=== PATIENT | male | born 1935 | race Caucasian/White ===

== ENCOUNTER 2016-09-02 22:28 | Inpatient (IN) | payer MEDICARE, OTHER ==
[~2016-09-02 22:28] MED LIST: ASPI81 PO; ENAL5TAB98 PO; FISH500C PO; KLOR20TA6 PO; LASI20TA PO; PROT40TA PO; ROSU20 PO; TAB-TAB PO; XARE20TA OR
[2016-09-02 22:35] VITALS: BP 100/67; PULSE 156; RESP 18; TEMP 98; O2SAT 96
[2016-09-02] MEDS ORDERED: ETOMIDATE 20 MG/10 ML VIAL IV PUSH ONE (22:45)
[2016-09-02] MEDS ORDERED: MORPHINE SULFATE 4 MG/ML INJ IV PUSH ONE (22:45)
[2016-09-02] MEDS ORDERED: LIDOCAINE HCL 2% 100 MG/5 ML SYRINGE IV PUSH ONE (22:45)
[2016-09-02] MEDS ORDERED: SODIUM CHLORIDE 0.9% FLUSH 10 ML FLUSH IVF PRN (22:45)
[2016-09-02 22:55] VITALS: BP 114/65; PULSE 66; RESP 18; O2SAT 96
[2016-09-02 22:57] VITALS: BP_SYST 110; BP_SYST 114; BP_DIAS 65; BP_DIAS 66; PULSE 68; RESP 14; O2SAT 95
[2016-09-02 23:02] VITALS: PULSE 68; RESP 16; O2SAT 96
[2016-09-02 23:05] VITALS: BP 119/68; PULSE 64; RESP 16; O2SAT 96
--- NOTE | 2016-09-02 23:07 | RADRPT ---
EXAM DATE/TIME: 09/02/2016 22:44 [place] COMPARISON: No previous studies available for comparison. INDICATIONS : Chest pain. MEDICAL HISTORY : Cardiovascular disease. SURGICAL HISTORY : Pacemaker. ENCOUNTER: Initial ACUITY: 1 day PAIN SCORE: Non-responsive. LOCATION: Bilateral chest FINDINGS: Pacemaker device is noted with control pack over the left chest. There is minimal patchy interstitial prominence of undetermined chronicity. Mild opacity at the lateral left lung base. Sternotomy wires and surgical clips and markers are present. Heart size is grossly within normal limits. CONCLUSION: Patchy mild parenchymal opacity. Luke Quiroga MD on September 02, 2016 at 23:04 Board Certified Radiologist. This report was verified electronically.
[2016-09-02 23:19] VITALS: BP 128/70; PULSE 68; RESP 16; O2SAT 96
[2016-09-02 23:40] LABS: AUTOMATED NEUTROPHIL # 3.3 TH/MM3 (1.8-7.7); BASOPHIL % 0.3 % (0.0-2.0); EOSINOPHIL # 0.2 TH/MM3 (0-0.4); EOSINOPHIL % 3.6 % (0.0-4.0); HEMATOCRIT 42.5 % (39.0-51.0); HEMO FLAGS DIFF FINAL; LYMPHOCYTE # 0.8 TH/MM3 (1.0-4.8); MEAN CELL VOLUME 93.1 FL (80.0-100.0); MEAN CORPUSCULAR HEMOGLOBIN 31.5 PG (27.0-34.0); MEAN CORPUSCULAR HGB CONC 33.9 % (32.0-36.0); MONO % 13.8 % (0.0-8.0); NEUT % 66.3 % (16.0-70.0); PLATELET COUNT 189 TH/MM3 (150-450); RED BLOOD COUNT 4.57 MIL/MM3 (4.50-5.90); RED CELL DISTRIBUTION WIDTH 13.9 % (11.6-17.2); WHITE BLOOD COUNT 4.9 TH/MM3 (4.0-11.0)
[2016-09-02] MEDS ORDERED: CARV25TA PO (23:45)
[2016-09-02] MEDS ORDERED: FOLI400T PO (23:45)
[2016-09-02] MEDS ORDERED: LOSA50TA PO (23:45)
[2016-09-02 23:55] LABS: APTT (PATIENT) 29.3 SEC (24.3-30.1); PROTHROMBIN TIME - PATIENT 11.3 SEC (9.8-11.6)
[2016-09-03] VITALS (21 sets, daily range): BP systolic 112–131; BP diastolic 54–75; PULSE 52–111; RESP 12–18; TEMP 97.4–98.4; O2SAT 92–96
--- NOTE | 2016-09-03 00:09 | PD ---
HPI . Chest pain Chief Complaint: Cardiac Complaint Time Seen by Provider: 22:32 Travel History International Travel<30 days: No Contact w/Intl Traveler<30days: No Traveled to known affect area: No History of Present Illness HPI Patient presents to us by EMS with the chief complaint of chest pain. EMS found that the patient was in V. tach. They treated him in route with amiodarone. The patient is on amiodarone. He also has an AICD/pacemaker. Patient reports the onset of chest pain approximately 45 minutes prior to their arrival of EMS. The discomfort has been continuous. He describes it as a squeezing sensation. No associated dizziness, diaphoresis or shortness of breath. Does report a previous similar history associated with IN. PFSH Past Medical History Hx Anticoagulant Therapy: Yes Heart Rhythm Problems: Yes Cancer: Yes (bladder tumors some where malignant) Cardiac Catheterization: Yes Cardiovascular Problems: Yes High Cholesterol: Yes Coronary Artery Disease: Yes Diabetes: No Diminished Hearing: No Endocrine: No Gastrointestinal Disorders: Yes (GERD) Glaucoma: No Genitourinary: No Hepatitis: No Hiatal Hernia: No Hypertension: Yes Immune Disorder: No Medical other: Yes (arthritis,bladder tumors hx of uti ) Musculoskeletal: No Neurologic: No Psychiatric: No Reproductive: No Respiratory: Yes (hx of pneumonia) Myocardial Infarction: Yes Thyroid Disease: No Past Surgical History Abdominal Surgery: Yes (gallbladder removed) AICD: Yes Body Medical Devices: BLADDER STIMULATOR Cardiac Surgery: Yes (quad by-pass then triple by-pass cardiac stents,AICD) Coronary Artery Bypass Graft: Yes (1980 AND 2002) Ear Surgery: No Endocrine Surgery: No Eye Surgery: No Genitourinary Surgery: Yes (bladder tumors removed prostate surgery) Oral Surgery: No Pacemaker: Yes Thoracic Surgery: No Other Surgery: Yes (CORONARY ARTERY BYPASS GRAFT IN 1980 AND 2002) Social History Alcohol Use: No Tobacco Use: Yes (quit; 1980) Substance Use: No Allergies-Medications (Allergen,Severity, Reaction): Coded Allergies: Cefizox (Verified Allergy, Severe, ANAPHYLAXIS, 09/02/16) Ceftin (Unverified Allergy, Severe, anaphylactic, 09/02/16) Levaquin (Verified Allergy, Severe, Anaphylaxis, 09/02/16) Penicillin (Verified Allergy, Mild, 09/02/16) causes anaphylactic Reported Meds & Prescriptions Reported Meds & Active Scripts Active Reported Folic Acid 400 Mcg Tab 400 Mcg PO DAILY Losartan (Losartan Potassium) 50 Mg Tab 50 Mg PO DAILY Carvedilol 25 Mg Tab 25 Mg PO BID K-Dur (Potassium Chloride) 20 Meq Tabcr 20 Meq PO DIRECTED Lasix (Furosemide) 20 Mg Tab 20 Mg PO DIRECTED Xarelto (Rivaroxaban) 20 Mg Tab 20 Mg OR Protonix (Pantoprazole Sodium) 40 Mg Tabdr 40 Mg PO DAILY Fish Oil 500 Mg Cap 1,000 Mg PO DAILY Crestor (Rosuvastatin Calcium) 20 Mg Tab 20 Mg PO DAILY Review of Systems Except as stated in HPI: all other systems reviewed are Neg Cardiovascular: Positive: Chest Pain or Discomfort, No: Palpitations Respiratory: No: Shortness of Breath Gastrointestinal: No: Nausea, Vomiting Physical Exam Narrative GENERAL: Patient is awake and alert and is in no acute distress. SKIN: Warm and dry. He is not pale or diaphoretic. HEAD: Atraumatic. Normocephalic. EYES: Pupils equal and round. Extraocular movements are intact. ENT: No nasal bleeding or discharge. Mucous membranes pink and moist. NECK: Trachea midline. Neck is supple. CARDIOVASCULAR: V. tach. RESPIRATORY: No accessory muscle use. Lungs are clear. GASTROINTESTINAL: Abdomen soft, non-tender, nondistended. MUSCULOSKELETAL: No obvious deformities. No edema. NEUROLOGICAL: Awake and alert. No obvious cranial nerve deficits. Motor grossly within normal limits. Normal speech. PSYCHIATRIC: Appropriate mood and affect; insight and judgment normal. Data Data Last Documented VS Vital Signs Date Time Temp Pulse Resp B/P Pulse Ox O2 Delivery O2 Flow Rate FiO2 09/03/16 00:36 65 18 116/67 95 Nasal Cannula 3 09/02/16 22:35 98.0 Orders Electrocardiogram (09/02/16 22:32) Basic Metabolic Panel (Bmp) (09/02/16 22:32) Ckmb (Isoenzyme) Profile (09/02/16 22:32) Complete Blood Count With Diff (09/02/16 22:32) Magnesium (Mg) (09/02/16 22:32) Prothrombin Time / Inr (Pt) (09/02/16 22:32) Act Partial Throm Time (Ptt) (09/02/16 22:32) Troponin I (09/02/16 22:32) Chest, Single Ap (09/02/16 22:32) Ecg Monitoring (09/02/16 22:32) Bilateral Bp Monitoring (09/02/16 22:32) Iv Access Insert/Monitor (09/02/16 22:32) Oximetry (09/02/16 22:32) Oxygen Administration (09/02/16 22:32) Morphine Inj (Morphine Inj) (09/02/16 22:45) Sodium Chloride 0.9% Flush (Ns Flush) (09/02/16 22:45) Lidocaine 2% Inj (Xylocaine 2% Inj) (09/02/16 22:45) Etomidate Inj (Amidate Inj) (09/02/16 22:45) CKMB (09/02/16 23:15) CKMB% (09/02/16 23:15) Admit Order (Ed Use Only) (09/03/16 01:06) Consult Cardiology (09/03/16 ) Labs Laboratory Tests Test 09/02/16 23:15 Prothrombin Time 11.3 SEC Prothromb Time International 1.0 RATIO Ratio Activated Partial 29.3 SEC Thromboplast Time White Blood Count 4.9 TH/MM3 Red Blood Count 4.57 MIL/MM3 Hemoglobin 14.4 GM/DL Hematocrit 42.5 % Mean Corpuscular Volume 93.1 FL Mean Corpuscular Hemoglobin 31.5 PG Mean Corpuscular Hemoglobin 33.9 % Concent Red Cell Distribution Width 13.9 % Platelet Count 189 TH/MM3 Mean Platelet Volume 8.8 FL Neutrophils (%) (Auto) 66.3 % Lymphocytes (%) (Auto) 16.0 % Monocytes (%) (Auto) 13.8 % Eosinophils (%) (Auto) 3.6 % Basophils (%) (Auto) 0.3 % Neutrophils # (Auto) 3.3 TH/MM3 Lymphocytes # (Auto) 0.8 TH/MM3 Monocytes # (Auto) 0.7 TH/MM3 Eosinophils # (Auto) 0.2 TH/MM3 Basophils # (Auto) 0.0 TH/MM3 CBC Comment DIFF FINAL Differential Comment Sodium Level 143 MEQ/L Potassium Level 4.0 MEQ/L Chloride Level 108 MEQ/L Carbon Dioxide Level 27.6 MEQ/L Anion Gap 7 MEQ/L Blood Urea Nitrogen 23 MG/DL Creatinine 0.89 MG/DL Estimat Glomerular Filtration 82 ML/MIN Rate Random Glucose 118 MG/DL Calcium Level 8.5 MG/DL Magnesium Level 2.0 MG/DL Total Creatine Kinase 125 U/L Creatine Kinase MB 2.7 NG/ML Troponin I 0.02 NG/ML MDM Medical Decision Making Medical Screen Exam Complete: Yes Emergency Medical Condition: Yes Interpretation(s) Initial EKG shows V. tach subsequent EKG shows a sinus rhythm with a left anterior fascicular block. This is unchanged from previous. Differential Diagnosis Differential diagnosis of chest pain includes but is not limited to musculoskeletal pain, pulmonary embolism, acute coronary syndrome, pneumonia, pleurisy Narrative Course Patient presented to us with a chief complaint of chest pain. Patient was found to be in V. tach by EMS. The V. tach did not respond amiodarone. The patient was given morphine, 4 mg IV, lidocaine, 100 mg IV and then etomidate. He was successfully cardioverted to a sinus rhythm. CBC & BMP Diagram 09/02/16 23:15 Initial cardiac enzymes are negative. Last Impressions Chest X-Ray 09/02/162 Signed Impressions: Service Date/Time: Friday, September 02, 2016 22:44 - CONCLUSION: Patchy mild parenchymal opacity. Luke Quiroga MD Critical Care Narrative Aggregate critical care time was 45 minutes. Time to perform other separately billable procedures was not included in the critical care time. My time did not include minutes spent treating any other patients simultaneously or on activities that did not directly contribute to the patient's treatment. The services I provided to this patient were to treat and/or prevent clinically significant deterioration due to VT I provided critical care services requiring my management, as noted below: Chart data review, documentation time, medication orders and management, vital sign assessments/reviewing monitor data, ordering and reviewing lab tests, ordering and interpreting/reviewing x-rays and diagnostic studies, care of the patient and discussion of the patient with the admitting physicians Procedures Procedure Narrative After the risks and benefits were discussed the following procedure was performed: MODERATE SEDATION: The patient was placed on a bench precision assembler and pulse oximetry. An ambu bag and suction was immediately available at bedside. The patient was monitored by the nurse. Oxygen saturation , heart rate and blood pressure were monitored. Procedural sedation was acheived using etomidate. The patient was observed until awake and alert. Procedural Sedation time in attendance was 15 minutes. Physician Communication Physician Communication Dr. Villanueva leather stripping machine operator, recommends admission to [facility]. Dr. Mann will be the admitting doctor. Diagnosis Primary Impression: VT (ventricular tachycardia) Admitting Information Admitting Physician Requests: Admit Condition: Stable Kerry Guaman MD Sep 03, 2016 00:09
[2016-09-03 00:31] LABS: CREATINE KINASE 125 U/L (39-308)
[2016-09-03 00:32] LABS: ANION GAP 7 MEQ/L (5-15); BICARBONATE 27.6 MEQ/L (21.0-32.0); BLOOD UREA NITROGEN 23 MG/DL (7-18); CHLORIDE 108 MEQ/L (98-107); GLOMERULAR FILTRATION RATE 82 ML/MIN (>89); SODIUM (NA) 143 MEQ/L (136-145)
[2016-09-03 00:43] LABS: CKMB 2.7 NG/ML (0.5-3.6)
[2016-09-03] MEDS: SODIUM CHLOR 0.9% 1000 ML INJ 1,000 ML IV SCH ×3 (01:18→15:34)
[2016-09-03] MEDS ORDERED: ACETAMINOPHEN 325 MG TAB PO PRN (01:30)
[2016-09-03] MEDS ORDERED: BISACODYL 10 MG SUPP RECTAL PRN (01:30)
[2016-09-03] MEDS ORDERED: ONDANSETRON HCL 4 MG/2 ML VIAL IVP PRN (01:30)
[2016-09-03] MEDS ORDERED: MORPHINE SULFATE 4 MG/ML INJ IV PRN (01:30)
[2016-09-03] MEDS ORDERED: SODIUM CHLORIDE 0.9% FLUSH 10 ML FLUSH IV FLUSH PRN (01:30)
[2016-09-03] MEDS ORDERED: ACETAMINOPHEN/HYDROcodone 325 MG/5 MG TAB PO PRN (01:30)
[2016-09-03] MEDS: SODIUM CHLORIDE 0.9% FLUSH 10 ML FLUSH IV FLUSH SCH ×2 (02:24→20:06)
--- NOTE | 2016-09-03 03:55 | HHI.HP ---
[facility] Service [facility] Primary Care Physician Socrates Gill MD Admission Diagnosis VT Diagnoses: (1) VT (ventricular tachycardia) Diagnosis: Principal (2) Chest pain Diagnosis: Principal (3) Dehydration Diagnosis: Principal Travel History International Travel<30 Days: No Contact w/Intl Traveler <30 Da: No Traveled to Known Affected Are: No History of Present Illness This is a 81-year-old male with a PMH of Bladder CA, HTN, Hyperlipidemia, CAD, GERD and AICD (Medtronic) who was brought to the ER by EMS secondary to complaints of chest pain, found to be in V-tach by EMS s/p Amiodarone w/ minimal improvement. Upon arrival to ER underwent successful cardioversion, current in sinus rhythm. Pt denies AICD firing. Recent AICD interrogation last week w/ no events noted. Follows w/ Dr. Niño, seen in office approx 1 month ago for routine visit w/ no changes to medications or new concerns. BP 119/68, HR 64, O2 sat 96% on 3L NC, Afebrile. CBC unremarkable. Chemistry with a GFR 82, BUN 23. Troponin 0.02. INR 1.0. CXR with patchy mild parenchymal opacity. Review of Systems Except as stated in HPI: all other systems reviewed are Neg ROS: 14 point review of systems otherwise negative. Past Family Social History Past Medical History PMH: Bladder CA, HTN, Hyperlipidemia, CAD, GERD and AICD (Medtronic) Past Surgical History PAST SURGICAL HISTORY: Cholecystectomy, AICD (Medtronic), Bladder Stimulator, CABG, Prostate surgery Allergies: Coded Allergies: Cefizox (Verified Allergy, Severe, ANAPHYLAXIS, 09/02/16) Ceftin (Unverified Allergy, Severe, anaphylactic, 09/02/16) Levaquin (Verified Allergy, Severe, Anaphylaxis, 09/02/16) Penicillin (Verified Allergy, Mild, 09/02/16) causes anaphylactic Family History PAST FAMILY HISTORY: Reviewed. No h/o DM or CAD Social History PAST SOCIAL HISTORY: Negative for alcohol, tobacco or drugs. Physical Exam Vital Signs Vital Signs Date Time Temp Pulse Resp B/P Pulse Ox O2 Delivery O2 Flow Rate FiO2 09/03/16 03:33 58 16 123/63 96 Nasal Cannula 3 09/03/16 00:36 65 18 116/67 95 Nasal Cannula 3 09/02/16 23:19 68 16 128/70 96 Nasal Cannula 3 09/02/16 23:12 68 18 97 Nasal Cannula 3 09/02/16 23:05 64 16 119/68 96 Nasal Cannula 3 09/02/16 23:02 68 16 96 09/02/16 22:57 68 14 114/65 95 Non-Rebreather 15 110/66 09/02/16 22:55 66 18 114/65 96 09/02/16 22:40 158 18 96 Non-Rebreather 15 09/02/16 22:35 98.0 156 18 100/67 96 09/02/16 22:30 96 Non-Rebreather 15 09/02/16 22:30 156 18 97 Nasal Cannula 3 Physical Exam PE: GENERAL: Elderly white male in no acute distress. at bedside. HEENT: PERRLA, EOMI. No scleral icterus or conjunctival pallor. No lid lag or facial droop. CARDIOVASCULAR: Regular rate and rhythm. No obvious murmurs to auscultation. No chest tenderness to palpation. RESPIRATORY: No obvious rhonchi or wheezing. Clear to auscultation. Breath sounds equal bilaterally. GASTROINTESTINAL: Abdomen soft, non-tender, nondistended. BS normal. MUSCULOSKELETAL: Extremities without clubbing, cyanosis, or edema. No obvious deformities. NEUROLOGICAL: Awake, alert and oriented x4. No focal neurologic deficits. Moving both upper and lower extremities spontaneously. Laboratory Laboratory Tests Test 09/02/16 23:15 Prothrombin Time 11.3 Prothromb Time International 1.0 Ratio Activated Partial 29.3 Thromboplast Time White Blood Count 4.9 Red Blood Count 4.57 Hemoglobin 14.4 Hematocrit 42.5 Mean Corpuscular Volume 93.1 Mean Corpuscular Hemoglobin 31.5 Mean Corpuscular Hemoglobin 33.9 Concent Red Cell Distribution Width 13.9 Platelet Count 189 Mean Platelet Volume 8.8 Neutrophils (%) (Auto) 66.3 Lymphocytes (%) (Auto) 16.0 Monocytes (%) (Auto) 13.8 Eosinophils (%) (Auto) 3.6 Basophils (%) (Auto) 0.3 Neutrophils # (Auto) 3.3 Lymphocytes # (Auto) 0.8 Monocytes # (Auto) 0.7 Eosinophils # (Auto) 0.2 Basophils # (Auto) 0.0 CBC Comment DIFF FINAL Differential Comment Sodium Level 143 Potassium Level 4.0 Chloride Level 108 Carbon Dioxide Level 27.6 Anion Gap 7 Blood Urea Nitrogen 23 Creatinine 0.89 Estimat Glomerular Filtration 82 Rate Random Glucose 118 Calcium Level 8.5 Magnesium Level 2.0 Total Creatine Kinase 125 Creatine Kinase MB 2.7 Troponin I 0.02 Result Diagram: 09/02/16 2315 09/02/162314 Assessment and Plan Problem List: (1) VT (ventricular tachycardia) ICD Code: I47.2 Status: Acute (2) Chest pain ICD Code: R07.9 Status: Acute (3) Dehydration ICD Code: E86.0 Status: Acute Assessment and Plan A/P: 1. V-tach: acute episode of V-tach s/p Amiodarone by EMS w/ minimal improvement, s/p successful cardioversion in ER. Remains in sinus rhythm. Vitals stable, electrolytes normal. Follows w/ Dr. Niño as outpatient, will consult for further recommendations. Admit to [facility], monitor on telemetry. AICD interrogation (Socialite). 2. Chest Pain: secondary to above, initial trop negative, EKG w/ no acute ischemia. Check serial cardiac enzymes. Morphine/NTG prn if needed. Cardio eval. 3. Dehydration: GFR 82, BUN 23. UA negative for UTI. IVF and repeat labs in a.m. 4. DVT Prophylaxis: On Xarelto at home. 5. Social work for d/c planning as needed. 6. Case discussed w/ ER physician at length. Physician Certification 2 Midnight Certification Type: Admission for Inpatient Services Order for Inpatient Services The services are ordered in accordance with Medicare regulations or non- Medicare payer requirements, as applicable. In the case of services not specified as inpatient-only, they are appropriately provided as inpatient services in accordance with the 2-midnight benchmark. Estimated LOS (days): 2 days is the estimated time the patient will need to remain in the hospital, assuming treatment plan goals are met and no additional complications. Post-Hospital Plan: Not yet determined Marianne Mann MD Sep 03, 2016 03:55
[2016-09-03] MEDS ORDERED: CARVEDILOL 12.5 MG TAB PO SCH (09:00)
[2016-09-03 11:04] LABS: BASOPHIL % 0.6 % (0.0-2.0); EOSINOPHIL # 0.2 TH/MM3 (0-0.4); EOSINOPHIL % 2.9 % (0.0-4.0); HEMATOCRIT 40.9 % (39.0-51.0); HEMO FLAGS DIFF FINAL; LYMPH % 14.2 % (9.0-44.0); LYMPHOCYTE # 0.8 TH/MM3 (1.0-4.8); MEAN CORPUSCULAR HEMOGLOBIN 30.8 PG (27.0-34.0); MEAN CORPUSCULAR HGB CONC 32.4 % (32.0-36.0); MONO % 11.3 % (0.0-8.0); PLATELET COUNT 130 TH/MM3 (150-450); RED CELL DISTRIBUTION WIDTH 13.7 % (11.6-17.2); WHITE BLOOD COUNT 5.6 TH/MM3 (4.0-11.0)
[2016-09-03 11:37] LABS: ALKALINE PHOSPHATASE 78 U/L (45-117); ALT (GPT) 29 U/L (12-78); ANION GAP 6 MEQ/L (5-15); AST (GOT) 16 U/L (15-37); BICARBONATE 27.7 MEQ/L (21.0-32.0); BLOOD UREA NITROGEN 23 MG/DL (7-18); CHLORIDE 109 MEQ/L (98-107); GLOMERULAR FILTRATION RATE 87 ML/MIN (>89); POTASSIUM 3.7 MEQ/L (3.5-5.1); SODIUM (NA) 143 MEQ/L (136-145); TOTAL BILIRUBIN ADULT 0.5 MG/DL (0.2-1.0)
--- NOTE | 2016-09-03 12:29 | HHI.PR ---
Addendum to Inpatient Note Addendum Reason: Additional Documentation Additional Information I have seen and examined the patient. The patient denies chest pain or shortness of breath. No further V. tach events on telemetry. Stable vital signs. Patient is awake alert oriented 3, nonacute distress. Lungs are clear to auscultation bilaterally. S1 and S2 present with regular rate and rhythm, no murmurs rubs or gallops. Abdomen is soft and nontender. Neuro exam is unremarkable. Patient with episode of V. tach status post amiodarone and cardioversion. The patient currently in sinus rhythm. I will follow-up cardiology recommendations. AICD interrogation pending. Some statin and facial for hyperlipidemia. Continue Protonix for GERD. Continue to hold Lasix and potassium supplementation. Patient currently with antegrade correlation on rivaroxaban at home. Upon review of charts there is no past history of atrial fibrillation. Patient states that he was placed on antibiotic correlation by Dr. Luke Evans. At this point it is not clear to me why the patient is on anti-coagulation, suspect likely secondary to a depressed ejection fraction. For now until we get the AICD interrogation and the radiology consultation I will place the patient on a heparin drip and hold oral anticoagulation. David Lewis MD Sep 03, 2016 12:28
[2016-09-03] MEDS ORDERED: NON-FORMULARY DRUG (Omega-3 Fatty Acids (Fish Oil) 1,000 MG) PO SCH (14:00)
[2016-09-03] MEDS ORDERED: HEPARIN-D5W INJ 250 ML IV SCH (14:15)
--- NOTE | 2016-09-03 14:17 | EKG ---
Date Performed: 09/02/2016 Time Performed: 22:32:59 PTAGE: 81 years EKG: Probable ventricular tachycardia with heart rate of 157 bpm with marked widening of QRS Com pared to previous tracing, the ventricular tachycardia is new. Previous tracing showed bigeminal PVC s. Clinical correlation and follow-up tracings strongly recommended. Abnormal ECG PREVIOUS TRACING : 02/01/2012 15.24 DOCTOR: Jose A Gregory Interpretating Date/Time 09/03/2016 14:16:40
--- NOTE | 2016-09-03 14:19 | EKG ---
Date Performed: 09/02/2016 Time Performed: 22:50:24 PTAGE: 81 years EKG: Sinus rhythm WITH FIRST DEGREE AV BLOCK WITH OCCASIONAL SUPRAVENTRICULAR PREMATURE COMPLEXES PROBABLE LATERAL DIANA CARDIAL INFARCTION INFERIOR MYOCARDIAL INFARCTION Compared to previous tracing, ventricular tachycard ia is no longer present. ABNORMAL ECG PREVIOUS TRACING : 09/02/2016 22.32.59 DOCTOR: Jose A Gregory Interpretating Date/Time 09/03/2016 14:17:20
--- NOTE | 2016-09-03 14:19 | EKG ---
Date Performed: 09/03/2016 Time Performed: 04:53:56 PTAGE: 81 years EKG: Sinus rhythm with PAC(s) with 1st degree A-V block Inferior infarct - age undetermined Possoble lateral myocardia l infarction of undetermined age Nonspecific ST-T wave changes Since previous tracing, no significant change noted Abnormal ECG PREVIOUS TRACING : 09/02/2016 22.50 DOCTOR: Jose A Gregory Interpretating Date/Time 09/03/2016 14:18:22
[2016-09-03 14:57] LABS: HEMATOCRIT 41.1 % (39.0-51.0); MEAN CELL VOLUME 93.6 FL (80.0-100.0); MEAN CORPUSCULAR HGB CONC 33.1 % (32.0-36.0); PLATELET COUNT 160 TH/MM3 (150-450); RED BLOOD COUNT 4.39 MIL/MM3 (4.50-5.90); RED CELL DISTRIBUTION WIDTH 13.9 % (11.6-17.2); REVIEW FLAG FINAL
[2016-09-03 15:14] LABS: INTERNATIONAL NORMALIZED RATIO 1.1 RATIO; PROTHROMBIN TIME - PATIENT 12.7 SEC (9.8-11.6)
[2016-09-03] MEDS: ATORVASTATIN 40 MG TAB PO SCH (15:34)
[2016-09-03] MEDS: PANTOPRAZOLE SOD 40 MG DELAYED RELEASE TAB PO SCH (15:34)
[2016-09-03] MEDS: ENOXAPARIN SODIUM 100 MG/ML SYRINGE SQ SCH (16:34)
[2016-09-03] MEDS: ASPIRIN EC 81 MG TABEC PO SCH (16:34)
--- NOTE | 2016-09-03 16:40 | MB ---
cc: JEFFERY MATHIAS M.D., DAVID W. M.D. LOPEZ, MARIA I. M.D. DATE OF CONSULTATION: 09/03/2016 REASON FOR CONSULTATION Ventricular tachycardia. HISTORY OF PRESENT ILLNESS 81-year-old white male with extensive coronary artery disease, status post four-vessel CABG in 1981 and two stents after that, who presented with retrosternal chest pain of one-hour duration. The patient called 911 and upon arrival the patient was found to be in sustained ventricular tachycardia. The patient was given sublingual nitroglycerin and was brought to the emergency room where the patient was cardioverted and went into normal sinus rhythm after just one shock. Currently the patient is asymptomatic, denies chest pain, shortness of breath or palpitations. PAST MEDICAL HISTORY 1. Coronary artery disease, is status post four-vessel CABG in 1981. 2. Ischemic cardiomyopathy with ejection fraction of 30% and is status post AICD. 3. Coronary stent in 2002. 4. Cypher stent to SVG to OM in 2008. 5. Bladder cancer. 6. Hypertension. 7. Dyslipidemia. 8. Paroxysmal atrial fibrillation. SOCIAL HISTORY Denies smoking or drinking. PAST SURGICAL HISTORY 1. Cholecystectomy. 2. Bladder stimulator. 3. Prostatectomy. ALLERGIES CEFIZOX, CEFTIN, LEVAQUIN AND PENICILLIN. CURRENT MEDICATIONS 1. Pantoprazole 40 mg daily. 2. Atorvastatin 40 mg daily. 3. Carvedilol 25 mg twice a day. 4. [place] as needed. REVIEW OF SYSTEMS As stated in the History of Present Illness. PHYSICAL EXAMINATION GENERAL: The patient is in no acute distress. VITAL SIGNS: Blood pressure is 112/54 with a mean of 73 mmHg, heart rate 56 beats per minute, he is afebrile, saturation 93%. HEAD AND NECK: Without JVD or carotid bruits. LUNGS: With bibasilar rales. HEART: Normal S1 and S2 without murmurs or gallops. ABDOMEN: Benign without visceromegaly or bruits. EXTREMITIES: Without edema. DATA Chest x-ray showed no cardiomegaly, prior sternotomy, AICD wire and a left base infiltrate. BLOOD WORK PT 12.7, INR 1.1, PTT 35. Sodium 143, potassium 3.7, BUN 23, creatinine 0.85, glucose 133, GFR 87, first troponin 0.02, second troponin 0.25. CBC with a white count of 5, hemoglobin of 13.6, platelet count of 160. EKG showed normal sinus rhythm with first-degree AV block and an old inferior infarct. ASSESSMENT A 81-year-old white male with coronary artery disease admitted with chest pain and ventricular tachycardia, status post external shock in the emergency room. His positive troponins are of undetermined origin since it could represent an acute coronary syndrome or be the result of his cardioversion. In any case, the patient will require a left cardiac catheterization to rule out significant coronary stenosis and will also need interrogation of his AICD since it failed to provide him with a shock. The patient had been on Xarelto for his atrial fibrillation and his last dose was yesterday. We will hold Xarelto and start SQ Lovenox at a therapeutic dose to prepare the patient for both cardiac catheterization and possible battery replacement for his AICD. He is already on beta-blockers and statins. I will also start Aspirin and ELIANA inhibitor if tolerated. We will continue to follow closely. MD PERCY Vanessa/FABIAN /3:57 PM /4:05 PM [id number]
[2016-09-03] MEDS: CARVEDILOL 12.5 MG TAB PO SCH (20:06)
[2016-09-04] VITALS (24 sets, daily range): BP systolic 96–137; BP diastolic 46–73; PULSE 54–66; RESP 12–16; TEMP 97.4–98.7; O2SAT 92–95
[2016-09-04] MEDS: ENOXAPARIN SODIUM 100 MG/ML SYRINGE SQ SCH ×2 (05:56→16:52)
[2016-09-04] MEDS: SODIUM CHLOR 0.9% 1000 ML INJ 1,000 ML IV SCH ×2 (07:05→16:53)
[2016-09-04 08:59] LABS: AUTOMATED NEUTROPHIL # 3.1 TH/MM3 (1.8-7.7); BASOPHIL % 0.5 % (0.0-2.0); EOSINOPHIL # 0.2 TH/MM3 (0-0.4); EOSINOPHIL % 4.3 % (0.0-4.0); HEMATOCRIT 42.7 % (39.0-51.0); HEMO FLAGS DIFF FINAL; LYMPH % 15.6 % (9.0-44.0); LYMPHOCYTE # 0.7 TH/MM3 (1.0-4.8); MEAN CELL VOLUME 93.7 FL (80.0-100.0); MEAN CORPUSCULAR HEMOGLOBIN 30.8 PG (27.0-34.0); MEAN CORPUSCULAR HGB CONC 32.8 % (32.0-36.0); MONO % 11.2 % (0.0-8.0); NEUT % 68.4 % (16.0-70.0); PLATELET COUNT 161 TH/MM3 (150-450); RED BLOOD COUNT 4.56 MIL/MM3 (4.50-5.90); RED CELL DISTRIBUTION WIDTH 13.8 % (11.6-17.2); WHITE BLOOD COUNT 4.6 TH/MM3 (4.0-11.0)
[2016-09-04] MEDS: SODIUM CHLORIDE 0.9% FLUSH 10 ML FLUSH IV FLUSH SCH ×2 (09:17→21:26)
[2016-09-04] MEDS: PANTOPRAZOLE SOD 40 MG DELAYED RELEASE TAB PO SCH (09:17)
[2016-09-04] MEDS: CARVEDILOL 12.5 MG TAB PO SCH ×2 (09:17→21:25)
[2016-09-04] MEDS: ASPIRIN EC 81 MG TABEC PO SCH (09:17)
[2016-09-04] MEDS: LOSARTAN 25 MG TAB PO SCH (09:17)
[2016-09-04] MEDS: ATORVASTATIN 40 MG TAB PO SCH (09:17)
[2016-09-04 09:18] LABS: ANION GAP 6 MEQ/L (5-15); AST (GOT) 17 U/L (15-37); BICARBONATE 25.8 MEQ/L (21.0-32.0); BLOOD UREA NITROGEN 14 MG/DL (7-18); CHLORIDE 109 MEQ/L (98-107); GLOMERULAR FILTRATION RATE 97 ML/MIN (>89); POTASSIUM 3.6 MEQ/L (3.5-5.1); SODIUM (NA) 141 MEQ/L (136-145)
[2016-09-04 09:21] LABS: ALKALINE PHOSPHATASE 76 U/L (45-117); ALT (GPT) 29 U/L (12-78); TOTAL BILIRUBIN ADULT 0.9 MG/DL (0.2-1.0)
[2016-09-04] MEDS ORDERED: POTASSIUM CHLORIDE 20 MEQ CONTROLLED RELEASE TAB PO ONE ×2 (11:30→15:30)
--- NOTE | 2016-09-04 12:51 | HHI.PR ---
Subjective Remarks Denies cp/sob no further arrythmias on telemetry Objective Vitals Vital Signs Date Time Temp Pulse Resp B/P Pulse Ox O2 Delivery O2 Flow Rate FiO2 09/04/16 10:00 62 09/04/16 09:00 58 09/04/16 08:00 66 09/04/16 08:00 97.4 59 16 129/73 92 09/04/16 07:00 61 09/04/16 06:00 66 09/04/16 05:00 58 09/04/16 04:00 62 09/04/16 03:00 98.3 65 12 96/46 93 09/04/16 03:00 58 09/04/16 02:00 56 09/04/16 01:00 58 09/04/16 00:00 59 09/04/16 00:00 98.3 60 12 122/67 95 09/03/16 23:00 54 09/03/16 22:00 54 09/03/16 21:00 54 09/03/16 20:00 98.4 60 12 131/64 95 09/03/16 20:00 61 09/03/16 18:12 60 09/03/16 17:00 56 09/03/16 16:00 56 09/03/16 16:00 97.4 58 16 125/73 92 09/03/16 15:00 56 09/03/16 14:00 52 09/03/16 13:05 111 I/O 09/03/16 09/03/16 09/03/16 09/04/16 09/04/16 09/04/16 07:00 15:00 23:00 07:00 15:00 23:00 Intake Total 1666 ml 600 ml Output Total 300 ml Balance 1666 ml 300 ml Intake Oral 480 ml 600 ml IV Total 1186 ml Output Urine Total 300 ml # Voids 1 4 # Bowel Movements 2 Result Diagram: 09/04/1682609/04/16826 Imaging Last Impressions Chest X-Ray 09/02/162231 Signed Impressions: Service Date/Time: Friday, September 02, 2016 22:44 - CONCLUSION: Patchy mild parenchymal opacity. Luke Quiroga MD Objective Remarks GENERAL: Elderly white male in no acute distress. HEENT: PERRLA, EOMI. No scleral icterus or conjunctival pallor. No lid lag or facial droop. CARDIOVASCULAR: Regular rate and rhythm. No obvious murmurs to auscultation. No chest tenderness to palpation. RESPIRATORY: No obvious rhonchi or wheezing. Clear to auscultation. Breath sounds equal bilaterally. GASTROINTESTINAL: Abdomen soft, non-tender, nondistended. BS normal. MUSCULOSKELETAL: Extremities without clubbing, cyanosis, or edema. No obvious deformities. NEUROLOGICAL: Awake, alert and oriented x4. No focal neurologic deficits. Moving both upper and lower extremities spontaneously. Procedures Cardioversion Medications and IVs Current Medications Medications (Trade) Dose Ordered Sig/Tristan Route Start Time Stop Time Status Last Admin (NS 1000 ml Inj) 1,000 ml @ 100 mls/hr Q10H IV 09/03/16 01:18 09/04/16 07:05 (NS Flush) 2 ml UNSCH PRN IV FLUSH 09/03/16 01:30 (NS Flush) 2 ml BID IV FLUSH 09/03/16 09:00 09/04/16 09:17 (Zofran Inj) 4 mg Q6H PRN IVP 09/03/16 01:30 (Dulcolax Supp) 10 mg DAILY PRN RECTAL 09/03/16 01:30 (Tylenol) 650 mg Q6H PRN PO 09/03/16 01:30 ([place] 5-325 Mg) 1 tab Q4H PRN PO 09/03/16 01:30 (Morphine Inj) 2 mg Q3H PRN IV 09/03/16 01:30 (Protonix) 40 mg DAILY PO 09/03/16 14:00 09/04/16 09:17 (Lipitor) 40 mg DAILY PO 09/03/16 14:00 09/04/16 09:17 (Cozaar) 25 mg DAILY PO 09/04/16 09:00 09/04/16 09:17 (Lovenox Inj) 90 mg Q12H SQ 09/03/16 17:00 09/04/16 05:56 (Coreg) 12.5 mg Q12HR PO 09/03/16 21:00 09/04/16 09:17 (Ecotrin Ec) 81 mg DAILY PO 09/03/16 16:15 09/04/16 09:17 Urinary Catheter: No Vascular Central Line Catheter: No A/P Problem List: (1) VT (ventricular tachycardia) ICD Code: I47.2 Status: Acute Plan: 81 yo male presented with V tach that did not respond to amiodarone sp cardioversion with resolution of arrythmia no sinus rythm Cardiology consulted Plan is to have left heart catheterization and AICD interrogated. fu cardiology recommendations Patient on aspirin ELIANA inhibitor, statin and beta quincy Continue to monitor on telemetry. (2) Chest pain ICD Code: R07.9 Status: Acute Plan: Likely due to demand ischemia. Troponins elevated is nonspecific in the setting of cardioversion chest pain resolved (3) Dehydration ICD Code: E86.0 Status: Acute Plan: bun elevated. Patient placed on IV fluids. (4) Atrial fibrillation ICD Code: I48.91 Status: Acute Plan: Now in sinus rythm on chronic anticoagulation w pradaxa which has been held Patient started on IV heparin gtt - this as discontinued by cardiology and patient placed on Lovenox SQ at therapeutic dose. Assessment and Plan GI prophylaxis: PPI DVT prophylaxis - on Lovenox SQ Discharge Planning Continue to monitor in [facility]. DC pending Cardiac catheterization and cards clearance. Problem Qualifiers (1) Chest pain: Qualified Code: I20.9 - Chest pain due to myocardial ischemia, unspecified ischemic chest pain type David Lewis MD Sep 04, 2016 12:51
[2016-09-05] VITALS (25 sets, daily range): BP systolic 119–148; BP diastolic 65–90; PULSE 53–77; RESP 14–18; TEMP 97.4–98.6; O2SAT 92–96
[2016-09-05] MEDS: SODIUM CHLOR 0.9% 1000 ML INJ 1,000 ML IV SCH (03:18)
[2016-09-05] MEDS: ENOXAPARIN SODIUM 100 MG/ML SYRINGE SQ SCH ×2 (04:38→17:14)
--- NOTE | 2016-09-05 08:04 | HHI.PR ---
Subjective Remarks denies cp/sob no further events on telemetry stable vital signs Objective Vitals Vital Signs Date Time Temp Pulse Resp B/P Pulse Ox O2 Delivery O2 Flow Rate FiO2 09/05/16 07:42 98.4 64 18 130/73 95 09/05/16 07:00 56 09/05/16 06:00 56 09/05/16 05:00 58 09/05/16 04:00 64 09/05/16 03:00 98.6 60 14 127/65 93 09/05/16 03:00 58 09/05/16 02:00 62 09/05/16 01:00 60 09/05/16 00:00 60 09/04/16 23:00 58 09/04/16 23:00 98.7 60 14 126/67 94 09/04/16 22:00 56 09/04/16 21:00 56 09/04/16 20:00 56 09/04/16 19:00 98.6 59 16 137/72 94 09/04/16 19:00 58 09/04/16 18:00 61 09/04/16 17:06 66 09/04/16 16:00 54 09/04/16 15:00 97.7 57 16 127/72 95 09/04/16 15:00 56 09/04/16 14:08 55 09/04/16 13:00 61 09/04/16 12:00 57 09/04/16 12:00 97.5 59 16 106/52 93 09/04/16 11:00 55 09/04/16 10:00 62 09/04/16 09:00 58 I/O 09/04/16 09/04/16 09/04/16 09/05/16 09/05/16 09/05/16 07:00 15:00 23:00 07:00 15:00 23:00 Intake Total 600 ml 1860 ml 1240 ml Output Total 300 ml 700 ml 900 ml Balance 300 ml 1160 ml 340 ml Intake Oral 600 ml 480 ml 240 ml IV Total 1380 ml 1000 ml Output Urine Total 300 ml 700 ml 900 ml # Voids 1 # Bowel Movements 1 Result Diagram: 09/04/16 0809/04/16826 Imaging Last Impressions Chest X-Ray 09/02/162231 Signed Impressions: Service Date/Time: Friday, September 02, 2016 22:44 - CONCLUSION: Patchy mild parenchymal opacity. Luke Quiroga MD Objective Remarks GENERAL: Elderly white male in no acute distress. HEENT: PERRLA, EOMI. No scleral icterus or conjunctival pallor. No lid lag or facial droop. CARDIOVASCULAR: Regular rate and rhythm. No obvious murmurs to auscultation. No chest tenderness to palpation. RESPIRATORY: Bilateral basilar crackles. No wheezing or rhonchi auscultated. GASTROINTESTINAL: Abdomen soft, non-tender, nondistended. BS normal. MUSCULOSKELETAL: Extremities without clubbing, cyanosis, or edema. No obvious deformities. NEUROLOGICAL: Awake, alert and oriented x4. No focal neurologic deficits. Moving both upper and lower extremities spontaneously. Procedures Cardioversion Medications and IVs Current Medications Medications (Trade) Dose Ordered Sig/Tristan Route Start Time Stop Time Status Last Admin (NS 1000 ml Inj) 1,000 ml @ 100 mls/hr Q10H IV 09/03/16 01:18 09/05/16 03:18 (NS Flush) 2 ml UNSCH PRN IV FLUSH 09/03/16 01:30 (NS Flush) 2 ml BID IV FLUSH 09/03/16 09:00 09/05/16 08:55 (Zofran Inj) 4 mg Q6H PRN IVP 09/03/16 01:30 (Dulcolax Supp) 10 mg DAILY PRN RECTAL 09/03/16 01:30 (Tylenol) 650 mg Q6H PRN PO 09/03/16 01:30 ([place] 5-325 Mg) 1 tab Q4H PRN PO 09/03/16 01:30 09/05/16 08:55 (Morphine Inj) 2 mg Q3H PRN IV 09/03/16 01:30 (Protonix) 40 mg DAILY PO 09/03/16 14:00 09/05/16 08:55 (Lipitor) 40 mg DAILY PO 09/03/16 14:00 09/05/16 08:55 (Cozaar) 25 mg DAILY PO 09/04/16 09:00 09/05/16 08:55 (Lovenox Inj) 90 mg Q12H SQ 09/03/16 17:00 09/05/16 04:38 (Coreg) 12.5 mg Q12HR PO 09/03/16 21:00 09/05/16 08:55 (Ecotrin Ec) 81 mg DAILY PO 09/03/16 16:15 09/05/16 08:55 Urinary Catheter: No Vascular Central Line Catheter: No A/P Problem List: (1) VT (ventricular tachycardia) ICD Code: I47.2 Status: Acute Plan: 81 yo male presented with chest pain and sustained V tach that did not respond to amiodarone administration sp cardioversion with resolution of arrythmia now sinus rythm EKG showed sinus rhythm at 62 bpm, PACs and first-degree AV block. Q waves present in inferior leads, 2, 3 aVF as well as T-wave inversions. There are also T-wave inversions in the lateral leads with T flat in lead V4 and T-wave inversions in V 5 and V6 Cardiology consulted Continue aspirin, ELIANA inhibitor, statin and beta quincy. Discussed the case with Negin ford cardiology PA. The plan will be to increase amiodarone dose, change AICD settings and observe for 24 hours on new dose of amiodarone. If no cardiac events then will DC patient in a.m. The patient will undergo a stress test as outpatient. (2) Chest pain ICD Code: R07.9 Status: Acute Plan: Likely due to demand ischemia. Troponins elevated is nonspecific in the setting of cardioversion chest pain resolved (3) Dehydration ICD Code: E86.0 Status: Acute Plan: bun elevated. Patient placed on IV fluids. DC IV fluids since patient has some bilateral rales on exam, will resume home lasix. (4) Atrial fibrillation ICD Code: I48.91 Status: Acute Plan: Now in sinus rythm on chronic anticoagulation w pradaxa which has been held Patient started on IV heparin gtt - this as discontinued by cardiology and patient placed on Lovenox SQ at therapeutic dose. Assessment and Plan GI prophylaxis: PPI DVT prophylaxis - on Lovenox SQ Discharge Planning Continue to monitor in [facility]. DC pending Cardiac catheterization and cards clearance. Problem Qualifiers (1) Chest pain: Qualified Code: I20.9 - Chest pain due to myocardial ischemia, unspecified ischemic chest pain type (2) Atrial fibrillation: Qualified Code: I48.0 - Paroxysmal atrial fibrillation David Lewis MD Sep 05, 2016 08:04
[2016-09-05] MEDS: ATORVASTATIN 40 MG TAB PO SCH (08:55)
[2016-09-05] MEDS: CARVEDILOL 12.5 MG TAB PO SCH ×2 (08:55→20:24)
[2016-09-05] MEDS: LOSARTAN 25 MG TAB PO SCH (08:55)
[2016-09-05] MEDS: ASPIRIN EC 81 MG TABEC PO SCH (08:55)
[2016-09-05] MEDS: SODIUM CHLORIDE 0.9% FLUSH 10 ML FLUSH IV FLUSH SCH ×2 (08:55→20:26)
[2016-09-05] MEDS: PANTOPRAZOLE SOD 40 MG DELAYED RELEASE TAB PO SCH (08:55)
--- NOTE | 2016-09-05 10:34 | PD.CARD.PN ---
Subjective Subjective Remarks The patient denies recurrent chest pressure or diaphoresis since cardioversion. He states that for the past month, he has not had CP or SOB with exertion. EKG is unchanged since October 2015. He device was interrogated which did confirm sustained VT, however, no changes were made to device settings. (Negin Zapata) Objective Medications Current Medications Medications (Trade) Dose Ordered Sig/Tristan Route Start Time Stop Time Status Last Admin (NS Flush) 2 ml UNSCH PRN IV FLUSH 09/03/16 01:30 (NS Flush) 2 ml BID IV FLUSH 09/03/16 09:00 09/05/16 08:55 (Zofran Inj) 4 mg Q6H PRN IVP 09/03/16 01:30 (Dulcolax Supp) 10 mg DAILY PRN RECTAL 09/03/16 01:30 (Tylenol) 650 mg Q6H PRN PO 09/03/16 01:30 ([place] 5-325 Mg) 1 tab Q4H PRN PO 09/03/16 01:30 09/05/16 08:55 (Morphine Inj) 2 mg Q3H PRN IV 09/03/16 01:30 (Protonix) 40 mg DAILY PO 09/03/16 14:00 09/05/16 08:55 (Lipitor) 40 mg DAILY PO 09/03/16 14:00 09/05/16 08:55 (Cozaar) 25 mg DAILY PO 09/04/16 09:00 09/05/16 08:55 (Lovenox Inj) 90 mg Q12H SQ 09/03/16 17:00 09/05/16 04:38 (Coreg) 12.5 mg Q12HR PO 09/03/16 21:00 09/05/16 08:55 (Ecotrin Ec) 81 mg DAILY PO 09/03/16 16:15 09/05/16 08:55 (Lasix) 20 mg ONCE ONCE PO 09/05/16 10:00 09/05/16 10:01 UNV Vital Signs / I&O Vital Signs Date Time Temp Pulse Resp B/P Pulse Ox O2 Delivery O2 Flow Rate FiO2 09/05/16 10:00 56 09/05/16 09:00 70 09/05/16 08:00 68 09/05/16 07:42 98.4 64 18 130/73 95 09/05/16 07:00 56 09/05/16 06:00 56 09/05/16 05:00 58 09/05/16 04:00 64 09/05/16 03:00 98.6 60 14 127/65 93 09/05/16 03:00 58 09/05/16 02:00 62 09/05/16 01:00 60 09/05/16 00:00 60 09/04/16 23:00 58 09/04/16 23:00 98.7 60 14 126/67 94 09/04/16 22:00 56 09/04/16 21:00 56 09/04/16 20:00 56 09/04/16 19:00 98.6 59 16 137/72 94 09/04/16 19:00 58 09/04/16 18:00 61 09/04/16 17:06 66 09/04/16 16:00 54 09/04/16 15:00 97.7 57 16 127/72 95 09/04/16 15:00 56 09/04/16 14:08 55 09/04/16 13:00 61 09/04/16 12:00 57 09/04/16 12:00 97.5 59 16 106/52 93 09/04/16 11:00 55 I/O 09/04/16 09/04/16 09/04/16 09/05/16 09/05/16 09/05/16 07:00 15:00 23:00 07:00 15:00 23:00 Intake Total 600 ml 1860 ml 1240 ml Output Total 300 ml 700 ml 900 ml Balance 300 ml 1160 ml 340 ml Intake Oral 600 ml 480 ml 240 ml IV Total 1380 ml 1000 ml Output Urine Total 300 ml 700 ml 900 ml # Voids 1 # Bowel Movements 1 Physical Exam GENERAL: Healthy appears male sitting up in the chair. SKIN: Warm and dry. HEAD: Normocephalic. EYES: No scleral icterus. No injection or drainage. NECK: Supple, trachea midline. No JVD or lymphadenopathy. CARDIOVASCULAR: Regular rate and rhythm without murmurs, gallops, or rubs. RESPIRATORY: Breath sounds equal bilaterally. No accessory muscle use. GASTROINTESTINAL: Abdomen soft, non-tender, nondistended. MUSCULOSKELETAL: No cyanosis, or edema. BACK: Nontender without obvious deformity. No CVA tenderness. Imaging Last 72 hours Impressions Chest X-Ray 09/02/16 7662 Signed Impressions: Service Date/Time: Friday, September 02, 2016 22:44 - CONCLUSION: Patchy mild parenchymal opacity. 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 Last cardiac stent 2008 Atrial fibrillation. Last Xarelto dose Monday night 8 pm. HTN HLD PLAN: Will hold off on cardiac cath at this time. Will complete ischemic work up outpatient Will have device settings modified to lower rate for AICD treatment. Discussed case with [employer] rep Increase amiodarone 200 mg BID Continue Coreg and ELIANA for CMP Will continue Lovenox for now and resume Xarelto at discharge. The patient will need to follow up in the office in 1 week. Will followup in the morning. Patient seen and evaluated by Dr. Niño. (Negin Zapata) Assessment and Plan CP secondary to prolonged VT for 2 hours, now better, adjusted ICD to fire/atp at a lower rate VT (Mirian Niño MD) Negin Zapata Sep 05, 2016 10:34 Mirian Niño MD Sep 05, 2016 18:18
[2016-09-05] MEDS: AMIODARONE 200 MG TAB PO SCH ×2 (10:50→20:24)
[2016-09-05] MEDS ORDERED: FUROSEMIDE 20 MG TAB PO ONE (11:00)
[2016-09-06] VITALS (19 sets, daily range): BP systolic 111–144; BP diastolic 53–88; PULSE 52–68; RESP 16–18; TEMP 97.5–98.2; O2SAT 92–94
[2016-09-06] MEDS: ENOXAPARIN SODIUM 100 MG/ML SYRINGE SQ SCH (04:41)
[2016-09-06 06:08] LABS: HEMATOCRIT 39.3 % (39.0-51.0); MEAN CORPUSCULAR HEMOGLOBIN 31.2 PG (27.0-34.0); MEAN CORPUSCULAR HGB CONC 33.5 % (32.0-36.0); PLATELET COUNT 157 TH/MM3 (150-450); RED BLOOD COUNT 4.23 MIL/MM3 (4.50-5.90); RED CELL DISTRIBUTION WIDTH 13.8 % (11.6-17.2); REVIEW FLAG FINAL; WHITE BLOOD COUNT 4.4 TH/MM3 (4.0-11.0)
[2016-09-06 06:35] LABS: BICARBONATE 28.7 MEQ/L (21.0-32.0); POTASSIUM 3.3 MEQ/L (3.5-5.1)
[2016-09-06] MEDS ORDERED: POTASSIUM CHLORIDE 25 MEQ EFFERVESCENT TAB PO ONE (08:30)
[2016-09-06] MEDS: CARVEDILOL 12.5 MG TAB PO SCH (08:45)
[2016-09-06] MEDS: PANTOPRAZOLE SOD 40 MG DELAYED RELEASE TAB PO SCH (08:45)
[2016-09-06] MEDS: ASPIRIN EC 81 MG TABEC PO SCH (08:45)
[2016-09-06] MEDS: ATORVASTATIN 40 MG TAB PO SCH (08:45)
[2016-09-06] MEDS: AMIODARONE 200 MG TAB PO SCH (08:45)
[2016-09-06] MEDS: LOSARTAN 25 MG TAB PO SCH (08:45)
[2016-09-06] MEDS: SODIUM CHLORIDE 0.9% FLUSH 10 ML FLUSH IV FLUSH SCH (08:46)
--- NOTE | 2016-09-06 09:32 | PD.CARD.PN ---
Subjective Subjective Remarks No acute complaints. Device setting modified yesterday. BLE edema and bilateral basilar rales today Objective Vital Signs / I&O Vital Signs Date Time Temp Pulse Resp B/P Pulse Ox O2 Delivery O2 Flow Rate FiO2 09/06/16 06:00 60 09/06/16 05:00 58 09/06/16 04:00 58 09/06/16 03:00 98.2 63 16 144/82 94 09/06/16 03:00 60 09/06/16 02:00 56 09/06/16 01:00 58 09/06/16 00:00 52 09/05/16 23:00 55 09/05/16 23:00 97.9 60 14 148/90 96 09/05/16 22:00 54 09/05/16 21:00 54 09/05/16 20:00 58 09/05/16 19:00 97.4 67 14 144/81 94 09/05/16 19:00 58 09/05/16 18:00 54 09/05/16 17:00 67 09/05/16 16:00 55 09/05/16 15:00 53 09/05/16 15:00 97.5 63 18 119/65 92 09/05/16 14:00 55 09/05/16 13:00 55 09/05/16 12:00 77 09/05/16 11:08 58 09/05/16 11:08 97.5 63 18 119/65 92 09/05/16 10:00 56 I/O 09/05/16 09/05/16 09/05/16 09/06/16 09/06/16 09/06/16 07:00 15:00 23:00 07:00 15:00 23:00 Intake Total 1240 ml 1200 ml 240 ml Output Total 900 ml Balance 340 ml 1200 ml 240 ml Intake Oral 240 ml 1200 ml 240 ml IV Total 1000 ml Output Urine Total 900 ml # Voids 4 2 # Bowel Movements 2 Physical Exam GENERAL: Healthy appears male sitting up in the chair. SKIN: Warm and dry. HEAD: Normocephalic. EYES: No scleral icterus. No injection or drainage. NECK: Supple, trachea midline. No JVD or lymphadenopathy. CARDIOVASCULAR: Regular rate and rhythm without murmurs, gallops, or rubs. Left chest ICD RESPIRATORY: Breath sounds equal bilaterally. No accessory muscle use. BILATERAL RALES GASTROINTESTINAL: Abdomen soft, non-tender, nondistended. MUSCULOSKELETAL: No cyanosis, or 1+ BLE edema BACK: Nontender without obvious deformity. No CVA tenderness. Laboratory Laboratory Tests Test 09/06/16 04:45 White Blood Count 4.4 TH/MM3 Red Blood Count 4.23 MIL/MM3 Hemoglobin 13.2 GM/DL Hematocrit 39.3 % Mean Corpuscular Volume 93.0 FL Mean Corpuscular Hemoglobin 31.2 PG Mean Corpuscular Hemoglobin 33.5 % Concent Red Cell Distribution Width 13.8 % Platelet Count 157 TH/MM3 Mean Platelet Volume 8.8 FL Sodium Level 143 MEQ/L Potassium Level 3.3 MEQ/L Chloride Level 106 MEQ/L Carbon Dioxide Level 28.7 MEQ/L Anion Gap 8 MEQ/L Blood Urea Nitrogen 13 MG/DL Creatinine 0.76 MG/DL Estimat Glomerular Filtration 99 ML/MIN Rate Random Glucose 85 MG/DL Calcium Level 8.6 MG/DL Assessment and Plan Assessment and Plan Sustained ventricular tachycardia s/p ACLS Elevated troponin likely due to sustained VT with cardioversion 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 Last cardiac stent 2008 Atrial fibrillation. Last Xarelto dose Monday night 8 pm. HTN HLD PLAN: IV diuresis and optimization of Potassium prior to discharge. Continue Amio 200 MG BID Continue Coreg and ELIANA for CMP. Add Aldactone today. Continue on discharge along with Lasix. Stop home K+. Resume Xarelto The patient will need to follow up in the office in 1-2 weeks with device check. Assessment and plan discussed with Dr. Niño. Negin Zapata Sep 06, 2016 09:32
[2016-09-06] MEDS ORDERED: ASPI81TA11 PO (09:57)
[2016-09-06] MEDS ORDERED: COZA25TA PO (09:57)
[2016-09-06] MEDS ORDERED: AMIO200T PO (09:57)
[2016-09-06] MEDS ORDERED: SPIR25 PO (09:57)
[2016-09-06] MEDS ORDERED: CARV12.5 PO (09:57)
[2016-09-06] MEDS ORDERED: FURO1TAB62 PO (09:57)
--- NOTE | 2016-09-06 10:02 | HHI.PR ---
Subjective Remarks Follow-up for shortness of breath and V. tach Shortness of breath at baseline, has mild crackles, on room air. No episodes of ventricular tachycardia overnight. Objective Vitals Vital Signs Date Time Temp Pulse Resp B/P Pulse Ox O2 Delivery O2 Flow Rate FiO2 09/06/16 08:45 97.6 64 16 144/88 92 09/06/16 07:00 55 09/06/16 06:00 60 09/06/16 05:00 58 09/06/16 04:00 58 09/06/16 03:00 98.2 63 16 144/82 94 09/06/16 03:00 60 09/06/16 02:00 56 09/06/16 01:00 58 09/06/16 00:00 52 09/05/16 23:00 55 09/05/16 23:00 97.9 60 14 148/90 96 09/05/16 22:00 54 09/05/16 21:00 54 09/05/16 20:00 58 09/05/16 19:00 97.4 67 14 144/81 94 09/05/16 19:00 58 09/05/16 18:00 54 09/05/16 17:00 67 09/05/16 16:00 55 09/05/16 15:00 53 09/05/16 15:00 97.5 63 18 119/65 92 09/05/16 14:00 55 09/05/16 13:00 55 09/05/16 12:00 77 09/05/16 11:08 58 09/05/16 11:08 97.5 63 18 119/65 92 09/05/16 10:00 56 I/O 09/05/16 09/05/16 09/05/16 09/06/16 09/06/16 09/06/16 07:00 15:00 23:00 07:00 15:00 23:00 Intake Total 1240 ml 1200 ml 240 ml Output Total 900 ml Balance 340 ml 1200 ml 240 ml Intake Oral 240 ml 1200 ml 240 ml IV Total 1000 ml Output Urine Total 900 ml # Voids 4 2 # Bowel Movements 2 Result Diagram: 09/06/16 0445 09/06/16 0445 Objective Remarks Not in distress, well-nourished, looks stated age PERRL, pink conjunctiva without injection, anicteric Nose without bleeding, airway patent, oropharynx clear Supple neck, no masses or thyromegaly, trachea midline Normal rate and regular rhythm, no murmurs gallops or rubs appreciated. Occasional crackles at bases. Normal bowel sounds, soft, non-tender, nondistended, no guarding. Extremities without clubbing, cyanosis, or edema. No rash of generalized distribution. Skin is warm and dry. AAO x3, no cranial nerve deficits, moves all 4 extremities, no focal neurologic deficits Normal mood, appropriate affect Procedures Cardioversion A/P Problem List: (1) VT (ventricular tachycardia) ICD Code: I47.2 Status: Acute (2) Chest pain ICD Code: R07.9 Status: Acute (3) Dehydration ICD Code: E86.0 Status: Acute (4) Atrial fibrillation ICD Code: I48.91 Status: Acute Assessment and Plan Ventricular tachycardia- 81 yo male presented with chest pain and sustained V tach that did not respond to amiodarone administration -sp cardioversion with resolution of arrythmia, status post loading with amiodarone, continue amiodarone twice a day. AICD settings changed yesterday threshold from 119-150. Discussed with cardiology, okay for discharge after diuresis, continue amiodarone, Xarelto, Aldactone and Lasix daily. Continue all other home medications. Ischemic workup as outpatient. Replace potassium today. Switch Lasix to oral daily. Chest pain-Likely due to demand ischemia. Troponins elevated is nonspecific in the setting of cardioversion chest pain resolved Dehydration ICD Code: E86.0 Status: Acute Plan: bun elevated. Patient placed on IV fluids. DC IV fluids since patient has some bilateral rales on exam, will resume home lasix. Atrial fibrillation ICD Code: I48.91 Status: Acute Plan: Now in sinus rythm on chronic anticoagulation, restart Xarelto Hypokalemia-replaced DVT prophylaxis: Lovenox Problem Qualifiers (1) Chest pain: Qualified Code: I20.9 - Chest pain due to myocardial ischemia, unspecified ischemic chest pain type (2) Atrial fibrillation: Qualified Code: I48.0 - Paroxysmal atrial fibrillation Tisha Velazco MD Sep 06, 2016 10:02
--- NOTE | 2016-09-06 10:03 | HHI.DS ---
Discharge Summary Admission Date Sep 03, 2016 at 01:08 Discharge Date: Sep 06, 2016 Admitting Diagnosis VT (1) VT (ventricular tachycardia) ICD Code: I47.2 Diagnosis: Principal (2) Chest pain ICD Code: R07.9 Diagnosis: Secondary (3) Dehydration ICD Code: E86.0 Diagnosis: Secondary (4) Atrial fibrillation ICD Code: I48.91 Diagnosis: Secondary Procedures Cardioversion Brief History - From Admission This is a 81-year-old male with a PMH of Bladder CA, HTN, Hyperlipidemia, CAD, GERD and AICD ([employer]tronic) who was brought to the ER by EMS secondary to complaints of chest pain, found to be in V-tach by EMS s/p Amiodarone w/ minimal improvement. Upon arrival to ER underwent successful cardioversion, current in sinus rhythm. Pt denies AICD firing. Recent AICD interrogation last week w/ no events noted. Follows w/ Dr. Niño, seen in office approx 1 month ago for routine visit w/ no changes to medications or new concerns. BP 119/68, HR 64, O2 sat 96% on 3L NC, Afebrile. CBC unremarkable. Chemistry with a GFR 82, BUN 23. Troponin 0.02. INR 1.0. CXR with patchy mild parenchymal opacity. CBC/BMP: 09/06/16 0445 09/06/16 0445 Significant Findings Laboratory Tests Test 09/03/16 09/03/16 09/04/16 09/06/16 10:38 14:45 08:27 04:45 Red Blood Count 4.30 MIL/MM3 4.39 MIL/MM3 4.23 MIL/MM3 (4.50-5.90) (4.50-5.90) (4.50-5.90) Platelet Count 130 TH/MM3 (150-450) Neutrophils (%) (Auto) 71.0 % (16.0-70.0) Monocytes (%) (Auto) 11.3 % 11.2 % (0.0-8.0) (0.0-8.0) Lymphocytes # (Auto) 0.8 TH/MM3 0.7 TH/MM3 (1.0-4.8) (1.0-4.8) Chloride Level 109 MEQ/L 109 MEQ/L (98-107) (98-107) Blood Urea Nitrogen 23 MG/DL (7-18) Estimat Glomerular Filtration 87 ML/MIN (>89) Rate Random Glucose 133 MG/DL (74-106) Calcium Level 8.3 MG/DL (8.5-10.1) Troponin I 0.25 NG/ML (0.02-0.05) Total Protein 6.1 GM/DL 6.3 GM/DL (6.4-8.2) (6.4-8.2) Albumin 3.1 GM/DL 3.2 GM/DL (3.4-5.0) (3.4-5.0) Prothrombin Time 12.7 SEC (9.8-11.6) Activated Partial 35.0 SEC Thromboplast Time (24.3-30.1) Eosinophils (%) (Auto) 4.3 % (0.0-4.0) Phosphorus Level 2.4 MG/DL (2.5-4.9) Potassium Level 3.3 MEQ/L (3.5-5.1) Imaging Last Impressions Chest X-Ray 09/02/162 Signed Impressions: Service Date/Time: Friday, September 02, 2016 22:44 - CONCLUSION: Patchy mild parenchymal opacity. Luke Quiroga MD PE at Discharge Not in distress, well-nourished, looks stated age PERRL, pink conjunctiva without injection, anicteric Nose without bleeding, airway patent, oropharynx clear Supple neck, no masses or thyromegaly, trachea midline Normal rate and regular rhythm, no murmurs gallops or rubs appreciated. Occasional crackles at bases. Normal bowel sounds, soft, non-tender, nondistended, no guarding. Extremities without clubbing, cyanosis, or edema. No rash of generalized distribution. Skin is warm and dry. AAO x3, no cranial nerve deficits, moves all 4 extremities, no focal neurologic deficits Normal mood, appropriate affect Pt update on day of discharge No overnight events, no further V. tach episodes, denies any chest pain or shortness of breath, on room air. Hospital Course This is a 81 yo male presented with chest pain and sustained V tach. Patient was given amiodarone loading and was started on amiodarone. Status post cardioversion after cardiology consultation with resolution of arrhythmia. Patient was started on amiodarone twice a day. During this hospitalization, AICD settings changed threshold from 170 to -150. Discussed with cardiology, ashley for discharge after diuresis, continue amiodarone, Xarelto, Aldactone and Lasix daily. Continue all other home medications. Ischemic workup as outpatient. Troponin elevation nonspecific secondary to cardioversion. Patient will be discharged home to follow-up with cardiology in one week. Pt Condition on Discharge: Good Discharge Disposition: Discharge Home Discharge Time: > 30 minutes Discharge Instructions Follow up Referrals: Cardiology - 1 Week New Medications: Furosemide (Lasix) 20 Mg Tab 20 MG PO DAILY water pill #30 Ref 0 TAB Spironolactone (Aldactone) 25 Mg Tab 25 MG PO BID diuretic #30 Ref 0 TAB Amiodarone (Amiodarone) 200 Mg Tab 200 MG PO Q12HR VT #[address] (Aspirin EC) 81 Mg Tabdr 81 MG PO DAILY heart #30 TAB Carvedilol (Coreg) 12.5 Mg Tab 12.5 MG PO Q12HR heart #60 TAB Losartan (Cozaar) 25 Mg Tab 25 MG PO DAILY HTN #30 TAB Continued Medications: Folic Acid (Folic Acid) 400 Mcg Tab 400 MCG PO DAILY Nutritional Supplement Ref 0 TAB [place]-3 Fatty Acids (Fish Oil) 500 Mg Cap 1000 MG PO DAILY Pantoprazole Sod (Protonix) 40 Mg Tabdr 40 MG PO DAILY Potassium Chloride Microencaps (K-Dur) 20 Meq Tabcr 20 MEQ PO DIRECTED Rivaroxaban (Xarelto) 20 Mg Tab 20 MG OR Rosuvastatin Calcium (Crestor) 20 Mg Tab 20 MG PO DAILY Discontinued Medications: Carvedilol (Carvedilol) 25 Mg Tab 25 MG PO BID #60 Ref 0 TAB Furosemide (Lasix) 20 Mg Tab 20 MG PO DIRECTED Losartan (Losartan) 50 Mg Tab 50 MG PO DAILY Blood Pressure Management #30 Ref 0 TAB Tisha Velazco MD Sep 06, 2016 10:02
[2016-09-06] MEDS ORDERED: FUROSEMIDE 40 MG/4 ML VIAL IV PUSH ONE (11:00)
[2016-09-06] MEDS ORDERED: SPIRONOLACTONE 25 MG TAB PO SCH (11:00)
[2016-09-06] MEDS ORDERED: RIVAROXABAN 20 MG TAB PO SCH (16:00)
== END 2016-09-06 16:31 | disposition home or self-care (01) | DRG 309 ==
LOC: NEPE 22:28 → NEDA 09-03 01:08 → HCIS 09-03 04:02
PROVIDERS: ADMIT Hospitalist; ATTEND Hospitalist
PROC: 5A2204Z Restoration of Cardiac Rhythm, Single (ICD-10-PCS; principal; 2016-09-03)
DX: I47.2 Ventricular tachycardia (principal); I24.8 Other forms of acute ischemic heart disease; E86.0 Dehydration; I25.10 Atherosclerotic heart disease of native coronary artery without angina pectoris; I25.5 Ischemic cardiomyopathy; I48.0 Paroxysmal atrial fibrillation; K21.9 Gastro-esophageal reflux disease without esophagitis; I25.2 Old myocardial infarction; I44.4 Left anterior fascicular block; E78.5 Hyperlipidemia, unspecified; I10 Essential (primary) hypertension; I44.0 Atrioventricular block, first degree; E87.6 Hypokalemia; Z79.01 Long term (current) use of anticoagulants; Z88.0 Allergy status to penicillin; Z88.1 Allergy status to other antibiotic agents; Z85.51 Personal history of malignant neoplasm of bladder; Z95.1 Presence of aortocoronary bypass graft; Z95.5 Presence of coronary angioplasty implant and graft; Z95.810 Presence of automatic (implantable) cardiac defibrillator
CPT/HCPCS: 71010; 80048; 80053; 82550; 82552; 83735; 83880; 84100; 84484; 85025; 85027; 85610; 85730; 92960; 93005; 96374; 99152; J1650; J1940; J2270; J7030

== ENCOUNTER → 2016-09-27 | Outpatient (CLI) | payer MEDICARE, OTHER ==
[~2016-09-27] MED LIST changes: +AMIO200T PO; -ASPI81 PO; +ASPI81TA11 PO; +CARV12.5 PO; +COZA25TA PO; -ENAL5TAB98 PO; +FOLI400T PO; +FURO1TAB62 PO; -LASI20TA PO; +METO25TA3 PO; +OMEGCAP PO; +SPIR25 PO; -TAB-TAB PO; +XARE20TA PO
[2016-09-27 10:57] LABS: AUTOMATED NEUTROPHIL # 3.4 TH/MM3 (1.8-7.7); BASOPHIL % 0.4 % (0.0-2.0); EOSINOPHIL # 0.1 TH/MM3 (0-0.4); EOSINOPHIL % 2.7 % (0.0-4.0); HEMATOCRIT 44.7 % (39.0-51.0); HEMO FLAGS DIFF FINAL; LYMPH % 17.7 % (9.0-44.0); LYMPHOCYTE # 0.9 TH/MM3 (1.0-4.8); MEAN CELL VOLUME 94.1 FL (80.0-100.0); MEAN CORPUSCULAR HEMOGLOBIN 31.7 PG (27.0-34.0); MEAN CORPUSCULAR HGB CONC 33.6 % (32.0-36.0); MONO % 13.8 % (0.0-8.0); NEUT % 65.4 % (16.0-70.0); PLATELET COUNT 207 TH/MM3 (150-450); RED BLOOD COUNT 4.75 MIL/MM3 (4.50-5.90); WHITE BLOOD COUNT 5.2 TH/MM3 (4.0-11.0)
[2016-09-27 11:33] LABS: ALT (GPT) 38 U/L (12-78); ANION GAP 7 MEQ/L (5-15); AST (GOT) 26 U/L (15-37); BICARBONATE 32.4 MEQ/L (21.0-32.0); BLOOD UREA NITROGEN 22 MG/DL (7-18); CHLORIDE 103 MEQ/L (98-107); GLOMERULAR FILTRATION RATE 78 ML/MIN (>89); GLUCOSE,FASTING 88 MG/DL (74-99); POTASSIUM 4.7 MEQ/L (3.5-5.1); SODIUM (NA) 142 MEQ/L (136-145)
[2016-09-27 11:43] LABS: ALKALINE PHOSPHATASE 87 U/L (45-117); HDL CHOLESTEROL 42.2 MG/DL (40.0-60.0); LDL CHOLESTEROL 51 MG/DL (0-99); TOTAL BILIRUBIN ADULT 0.7 MG/DL (0.2-1.0)
== END ==
LOC: PLAB 08:58
PROVIDERS: ATTEND Family Medicine
DX: E78.5 Hyperlipidemia, unspecified (principal)
CPT/HCPCS: 36415; 80053; 80061; 84443; 85025

== ENCOUNTER 2016-09-28 23:47 | Inpatient (IN) | payer MEDICARE, OTHER ==
[~2016-09-28] VITALS: Ht 175.3 cm; Wt 92.1 kg
[~2016-09-28 23:47] MED LIST changes: -METO25TA3 PO; -OMEGCAP PO; -XARE20TA PO
[2016-09-28 23:50] VITALS: BP 150/72; PULSE 72; RESP 16; TEMP 98.3; O2SAT 91
[2016-09-29] VITALS (18 sets, daily range): BP systolic 121–151; BP diastolic 68–81; PULSE 55–76; RESP 16; TEMP 93–98.4; O2SAT 93–99
[2016-09-29 00:16] LABS: AUTOMATED NEUTROPHIL # 3.4 TH/MM3 (1.8-7.7); BASOPHIL % 0.6 % (0.0-2.0); EOSINOPHIL # 0.1 TH/MM3 (0-0.4); EOSINOPHIL % 2.7 % (0.0-4.0); HEMATOCRIT 42.8 % (39.0-51.0); HEMO FLAGS DIFF FINAL; LYMPH % 17.3 % (9.0-44.0); LYMPHOCYTE # 0.9 TH/MM3 (1.0-4.8); MEAN CELL VOLUME 92.9 FL (80.0-100.0); MEAN CORPUSCULAR HEMOGLOBIN 31.7 PG (27.0-34.0); MEAN CORPUSCULAR HGB CONC 34.1 % (32.0-36.0); MONO % 14.5 % (0.0-8.0); NEUT % 64.9 % (16.0-70.0); PLATELET COUNT 191 TH/MM3 (150-450); RED BLOOD COUNT 4.61 MIL/MM3 (4.50-5.90); RED CELL DISTRIBUTION WIDTH 14.1 % (11.6-17.2); WHITE BLOOD COUNT 5.3 TH/MM3 (4.0-11.0)
[2016-09-29] MEDS ORDERED: XARE20TA PO (00:23)
[2016-09-29] MEDS ORDERED: OMEGCAP PO (00:23)
--- NOTE | 2016-09-29 00:24 | PD ---
HPI Chief Complaint: Chest Pain Time Seen by Provider: 00:22 Travel History International Travel<30 days: No Contact w/Intl Traveler<30days: No Traveled to known affect area: No History of Present Illness HPI 81-year-old male presents to the emergency department by EMS transport from home for evaluation of chest pain. Patient states about 10 PM he developed some left-sided chest heaviness over his heart 4-5/10 in intensity. Patient states shortly thereafter he was delivered a shock by his [employer]tronic AICD. Patient states this occurred again approximately 20 minutes later with chest heaviness over the left side of the chest over his heart 4-5/10 intensity and again received a shock delivery by his AICD. Patient states subsequently his called 911 and they were encouraged to give the patient a nitroglycerin. Patient took one nitroglycerin. Patient has had no subsequent chest heaviness or discomfort. Patient states he was recently hospitalized due to ventricular tachycardia that was not manage by his Medtronic AICD pacemaker as when it was interrogated his heart rate was identified to be 168 in the Medtronic defibrillator was set at 170 subsequently the device was adjusted to defibrillate the patient and a heart rate of 150 reportedly. Patient did well and did not require any further procedural intervention. Patient did not undergo cardiac catheterization. Patient is followed by Dr. Niño. Patient saw his user interface engineer 1 week ago Monday and no medications were adjusted. Patient does take Xarelto. Patient also takes aspirin and has had his daily dose earlier today. Patient denies any associated shortness of breath sweats nausea vomiting near syncope syncope or referred neck jaw back shoulder arm or abdominal pain. No laxity pain or swelling. No orthopnea or PND. As well as patient having history of CAD with ischemic cardiomyopathy and EF 30% and pacemaker defibrillator paroxysmal atrial fibrillation he is also managed for bladder cancer hypertension dyslipidemia and GERD. The patient rates his current discomfort 0/10 in intensity. PFSH Past Medical History Narrative Medical Atrial fibrillation, ventricular tachycardia, CAD, VT, hypertension, does dyslipidemia, bladder cancer, GERD, pneumonia; cardiac catheterization, stents, CABG, AICD pacemaker, cholecystectomy; no tobacco use; nursing notes reviewed Hx Anticoagulant Therapy: Yes Atrial Fibrillation: Yes Heart Rhythm Problems: Yes Cancer: Yes (bladder tumors some where malignant) Cardiac Catheterization: Yes Cardiovascular Problems: Yes High Cholesterol: Yes Coronary Artery Disease: Yes Diabetes: No Diminished Hearing: No Endocrine: No Gastrointestinal Disorders: Yes (GERD) Glaucoma: No Genitourinary: No Hepatitis: No Hiatal Hernia: No Hypertension: Yes Immune Disorder: No Medical other: Yes (arthritis,bladder tumors hx of uti ) Musculoskeletal: No Neurologic: No Psychiatric: No Reproductive: No Respiratory: Yes (hx of pneumonia) Myocardial Infarction: Yes Thyroid Disease: No Tetanus Vaccination: < 5 Years Influenza Vaccination: Yes Past Surgical History Abdominal Surgery: Yes (gallbladder removed) AICD: Yes Body Medical Devices: BLADDER STIMULATOR Cardiac Surgery: Yes (quad by-pass then triple by-pass cardiac stents,AICD) Coronary Artery Bypass Graft: Yes (1980 AND 2002 QUADRUPLE BYPASS) Ear Surgery: No Endocrine Surgery: No Eye Surgery: No Genitourinary Surgery: Yes (bladder tumors removed prostate surgery) Oral Surgery: No Pacemaker: Yes Thoracic Surgery: No Other Surgery: Yes (CORONARY ARTERY BYPASS GRAFT IN 1980 AND 2002) Social History Alcohol Use: Yes (DAILY 1 DRINK/DAY) Tobacco Use: Yes (quit; 1979) Substance Use: No Allergies-Medications (Allergen,Severity, Reaction): Coded Allergies: Cefizox (Verified Allergy, Severe, ANAPHYLAXIS, 09/28/16) Ceftin (Unverified Allergy, Severe, anaphylactic, 09/28/16) Levaquin (Verified Allergy, Severe, Anaphylaxis, 09/28/16) Penicillin (Verified Allergy, Mild, 09/28/16) causes anaphylactic Reported Meds & Prescriptions Reported Meds & Active Scripts Active Coreg (Carvedilol) 12.5 Mg Tab 12.5 Mg PO Q12HR Aspirin EC (Aspirin) 81 Mg Tabdr 81 Mg PO DAILY Amiodarone (Amiodarone HCl) 200 Mg Tab 200 Mg PO Q12HR Cozaar (Losartan Potassium) 25 Mg Tab 25 Mg PO DAILY Aldactone (Spironolactone) 25 Mg Tab 25 Mg PO BID Reported Xarelto (Rivaroxaban) 20 Mg Tab 20 Mg PO DAILY [place]-3 Fish Oil/Vitamin (Fish Oil-Cholecalciferol) 1,000-1,000 Mg Cap 1 Cap PO DAILY Folic Acid 400 Mcg Tab 400 Mcg PO DAILY Review of Systems Except as stated in HPI: all other systems reviewed are Neg General / Constitutional: No: Fever, Chills HENT: No: Congestion Cardiovascular: Positive: Chest Pain or Discomfort Respiratory: No: Shortness of Breath Gastrointestinal: No: Nausea, Vomiting, Abdominal Pain Genitourinary: No: Flank Pain Musculoskeletal: No: Myalgias, Arthralgias Skin: No Rash Neurologic: No: Weakness Psychiatric: No: Anxiety Endocrine: No: Heat Intolerance Hematologic/Lymphatic: No: Easy Bruising Physical Exam Narrative GENERAL: Well-developed well-nourished pleasant male in no acute distress no respiratory distress conversant and smiling with spouse at bedside SKIN: Warm and dry. HEAD: Normocephalic. EYES: No scleral icterus. No injection or drainage. NECK: Supple, trachea midline. No JVD or lymphadenopathy. CARDIOVASCULAR: Regular rate and rhythm without murmurs, gallops, or rubs. Bilateral radial and dorsalis pedis pulses 2+ to palpation. RESPIRATORY: Breath sounds equal bilaterally. No accessory muscle use. GASTROINTESTINAL: Abdomen soft, non-tender, nondistended. MUSCULOSKELETAL: No cyanosis, or edema. BACK: Nontender without obvious deformity. No CVA tenderness. Data Data Last Documented VS Vital Signs Date Time Temp Pulse Resp B/P Pulse Ox O2 Delivery O2 Flow Rate FiO2 09/29/16 00:00 95 Nasal Cannula 2 09/28/16 23:50 98.3 72 16 150/72 Orders Electrocardiogram (09/28/16 23:58) Complete Blood Count With Diff (09/28/16 23:58) Basic Metabolic Panel (Bmp) (09/28/16 23:58) Ckmb (Isoenzyme) Profile (09/28/16 23:58) Troponin I (09/28/16 23:58) Chest, Single Ap (09/28/16 23:58) Iv Access Insert/Monitor (09/28/16 23:58) Ecg Monitoring (09/28/16 23:58) Oxygen Administration (09/28/16 23:58) Oximetry (09/28/16 23:58) Act Partial Throm Time (Ptt) (09/29/16 00:03) Prothrombin Time / Inr (Pt) (09/29/16 00:03) CKMB (09/29/16 00:00) CKMB% (09/29/16 00:00) Place In Observation (09/29/16 ) Vital Signs (Adult) Q4H (09/29/16 01:44) Activity Oob With Assistance (09/29/16 01:44) Appointment Manager / Telemetry .CONTINUOUS (09/29/16 01:44) Diet Heart Healthy (09/29/16 Breakfast) Sodium Chloride 0.9% Flush (Ns Flush) (09/29/16 01:45) Sodium Chloride 0.9% Flush (Ns Flush) (09/29/16 09:00) Basic Metabolic Panel (Bmp) (09/30/16 06:00) Complete Blood Count With Diff (09/30/16 06:00) Creatine Kinase (Cpk) (09/29/16 06:00) Creatine Kinase (Cpk) (09/29/16 12:00) Troponin I (09/29/16 06:00) Troponin I (09/29/16 12:00) Case Management Consult (09/29/16 01:44) Naloxone Inj (Narcan Inj) (09/29/16 01:45) Admit Order (Ed Use Only) (09/29/16 ) ^ Saline Lock (09/29/16 01:47) Resp Oxygen Hiro C Titrat 1-4 L (09/29/16 ) Notify Dr: Other (09/29/16 01:47) Sodium Chloride 0.9% Flush (Ns Flush) (09/29/16 09:00) Sodium Chloride 0.9% Flush (Ns Flush) (09/29/16 02:00) Consult Cardiology (09/29/16 01:47) Labs Laboratory Tests Test 09/29/16 00:00 White Blood Count 5.3 TH/MM3 Red Blood Count 4.61 MIL/MM3 Hemoglobin 14.6 GM/DL Hematocrit 42.8 % Mean Corpuscular Volume 92.9 FL Mean Corpuscular Hemoglobin 31.7 PG Mean Corpuscular Hemoglobin 34.1 % Concent Red Cell Distribution Width 14.1 % Platelet Count 191 TH/MM3 Mean Platelet Volume 8.1 FL Neutrophils (%) (Auto) 64.9 % Lymphocytes (%) (Auto) 17.3 % Monocytes (%) (Auto) 14.5 % Eosinophils (%) (Auto) 2.7 % Basophils (%) (Auto) 0.6 % Neutrophils # (Auto) 3.4 TH/MM3 Lymphocytes # (Auto) 0.9 TH/MM3 Monocytes # (Auto) 0.8 TH/MM3 Eosinophils # (Auto) 0.1 TH/MM3 Basophils # (Auto) 0.0 TH/MM3 CBC Comment DIFF FINAL Differential Comment Prothrombin Time 10.9 SEC Prothromb Time International 1.0 RATIO Ratio Activated Partial 27.9 SEC Thromboplast Time Sodium Level 142 MEQ/L Potassium Level 3.8 MEQ/L Chloride Level 107 MEQ/L Carbon Dioxide Level 27.4 MEQ/L Anion Gap 8 MEQ/L Blood Urea Nitrogen 23 MG/DL Creatinine 0.89 MG/DL Estimat Glomerular Filtration 82 ML/MIN Rate Random Glucose 121 MG/DL Calcium Level 9.2 MG/DL Total Creatine Kinase 110 U/L Creatine Kinase MB 3.0 NG/ML Troponin I 0.10 NG/ML MDM Medical Decision Making Medical Screen Exam Complete: Yes Emergency Medical Condition: Yes Medical Record Reviewed: Yes Interpretation(s) CBC & BMP Diagram 09/29/16 00:00 EKG normal sinus rhythm rate 72 first degree avb QS inferiorly age- indeterminate no acute ST elevation or injury pattern change noted comparison EKG from essentially unchanged Vital Signs Date Time Temp Pulse Resp B/P Pulse Ox O2 Delivery O2 Flow Rate FiO2 09/29/16 00:00 95 Nasal Cannula 2 09/28/16 23:50 98.3 72 16 150/72 91 Last Impressions Chest X-Ray 09/28/16 6248 Signed Impressions: Service Date/Time: September 00:21 - CONCLUSION: Cardiomegaly. Clear lungs. David Israel Jr., MD Troponin I 0.10 elevated; CK 110, not elevated Differential Diagnosis chest pain, ACS, VT, VT, electrolyte disturbance Narrative Course Patient placed on haulpak driver IV access obtained specimens collected and sent for resulting EKG ordered and reveals no acute ST elevation or injury pattern At 12:30 AM patient denies any chest discomfort or chest pain pain is 0/10 in intensity lab values are pending At 1:50 AM patient's troponin I is identified to be elevated at 0.10; CK and normal range; patient will be admitted to medicine service call has been placed to patient's user interface engineer and to [employer] for device interrogation Patient is aware of lab results and plan for admission. Critical Care Narrative Aggregate critical care time was 35 minutes. Time to perform other separately billable procedures was not included in the critical care time. My time did not include minutes spent treating any other patients simultaneously or on activities that did not directly contribute to the patient's treatment. The services I provided to this patient were to treat and/or prevent clinically significant deterioration that could result in: mi, sustained V. tach/V. fib, I provided critical care services requiring my management, as noted below: Chart data review, documentation time, medication orders and management, vital sign assessments/reviewing monitor data, ordering and reviewing lab tests, ordering and interpreting/reviewing x-rays and diagnostic studies, care of the patient and discussion of the patient with the admitting physicians. Physician Communication Physician Communication call placed to [facility] accepted by Dr Harris; call placed to patient's user interface engineer Dr Niño --discussed with Dr Silva Diagnosis Primary Impression: Chest pain Qualified Code: R07.2 - Precordial pain Additional Impressions: AICD discharge Elevated troponin I level Admitting Information Admitting Physician Requests: it Alejandra Castellanos MD September 29, 2016 00:24
--- NOTE | 2016-09-29 00:29 | RADRPT ---
EXAM DATE/TIME: 09/29/2016 00:21 [place] COMPARISON: CHEST SINGLE AP, September 02, 2016, 22:44. INDICATIONS : Chest pain. MEDICAL HISTORY : Cardiovascular disease. SURGICAL HISTORY : Pacemaker. CABG. ENCOUNTER: Initial ACUITY: 1 day PAIN SCORE: 4/10 LOCATION: Bilateral chest FINDINGS: A single portable frontal view of the chest shows mild clinically. No pulmonary vascular engorgement. Single lead pacing device on the left. Median sternotomy wires and coronary markers. Left basilar sc arring. No infiltrate or effusion. CONCLUSION: Cardiomegaly. Clear lungs. David Israel Jr., MD on September 29, 2016 at 0:27 Board Certified Radiologist. This report was verified electronically.
[2016-09-29 00:39] LABS: ANION GAP 8 MEQ/L (5-15); BICARBONATE 27.4 MEQ/L (21.0-32.0); BLOOD UREA NITROGEN 23 MG/DL (7-18); CHLORIDE 107 MEQ/L (98-107); CREATINE KINASE 110 U/L (39-308); GLOMERULAR FILTRATION RATE 82 ML/MIN (>89); POTASSIUM 3.8 MEQ/L (3.5-5.1); SODIUM (NA) 142 MEQ/L (136-145)
[2016-09-29 01:04] LABS: APTT (PATIENT) 27.9 SEC (24.3-30.1); PROTHROMBIN TIME - PATIENT 10.9 SEC (9.8-11.6)
[2016-09-29] MEDS ORDERED: SODIUM CHLORIDE 0.9% FLUSH 10 ML FLUSH IV FLUSH PRN (01:45)
[2016-09-29] MEDS ORDERED: NALOXONE HCL 0.4 MG/ML AMP IV PRN (01:45)
[2016-09-29] MEDS ORDERED: SODIUM CHLORIDE 0.9% FLUSH 10 ML FLUSH IVF PRN (02:00)
[2016-09-29] MEDS ORDERED: AMIODARONE 200 MG TAB PO ONE (03:15)
[2016-09-29] MEDS ORDERED: CARVEDILOL 12.5 MG TAB PO ONE (03:30)
--- NOTE | 2016-09-29 05:08 | HHI.HP ---
HPI Service [facility] Primary Care Physician Socrates Gill MD Admission Diagnosis chest pain; AICD h/o Vtach Diagnoses: Travel History International Travel<30 Days: No Contact w/Intl Traveler <30 Da: No Traveled to Known Affected Are: No History of Present Illness This is a pleasant 81 year old patient with a past medical history which includes Coronary artery disease status post CABG, Ischemic cardiomyopathy with ejection fraction of 30% and is status post AICD, Bladder cancer, Hypertension, Dyslipidemia, Paroxysmal atrial fibrillation. Patient was sitting on the cough watch TV 09/28/2016 evening felt left sided chest heaviness for about 30 seconds to 1 minute then his defibrillator fired. Patient reports later that same night he was walking out of the bathroom and he again felt a heaviness in his chest and his defibrillator fired again. Patient denies radiation of chest heaviness. REports the chest heaviness was mild in nature and resolved after the defibrillator shock. There was no associated SOB, diaphoresis, nausea or vomiting. Patient was also recently in the hospital 09/03/16 with VT. At that time patient's amiodarone was increased to BID and he was started on spirolactone in addition to his Lasix. Patient reports that he has since ran out of his spirolactone and takes his Lasix every 2-3 days. Patient's security operations engineer is Dr. Niño Patient denies SOB, N/V/D, lower extremity edema, dysuria, black stool or blood in stool. EKG on arrival to the ER reviewed and reveals: Sinus rhythm heart rate 72 bpm with first-degree AV block reason lead 3 and aVF Pacemaker interrogation reviewed and reports 7 high ventricular rate episodes, 3 episodes treated with ATP and 2 episodes treated with ATP then shock Review of Systems Except as stated in HPI: all other systems reviewed are Neg Past Family Social History Past Medical History Coronary artery disease status post CABG, Ischemic cardiomyopathy with ejection fraction of 30% and is status post AICD, Bladder cancer, Hypertension, Dyslipidemia, Paroxysmal atrial fibrillation. Past Surgical History Bladder tumor removed LA CABG x 4 2002, and CABG x3 2004 cardiac stent 2009 Defibrillator placement 2012 Cholecystectomy 2006 bilateral cataract removal Interste bladder [id number] eye lid surgery 2009 tumor forehead removed 2013 hand surgery 2013 Reported Medications Coreg (Carvedilol) 12.5 Mg Tab 12.5 Mg PO Q12HR Aspirin EC (Aspirin) 81 Mg Tabdr 81 Mg PO DAILY Amiodarone (Amiodarone HCl) 200 Mg Tab 200 Mg PO Q12HR Cozaar (Losartan Potassium) 25 Mg Tab 25 Mg PO DAILY Aldactone (Spironolactone) 25 Mg Tab 25 Mg PO BID Xarelto (Rivaroxaban) 20 Mg Tab 20 Mg PO DAILY [place]-3 Fish Oil/Vitamin (Fish Oil-Cholecalciferol) 1,000-1,000 Mg Cap 1 Cap PO DAILY Folic Acid 400 Mcg Tab 400 Mcg PO DAILY Allergies: Coded Allergies: Cefizox (Verified Allergy, Severe, ANAPHYLAXIS, 10/02/16) Ceftin (Unverified Allergy, Severe, anaphylactic, 10/02/16) Levaquin (Verified Allergy, Severe, Anaphylaxis, 10/02/16) Penicillin (Verified Allergy, Mild, 10/02/16) causes anaphylactic Active Ordered Medications Current Medications Medications (Trade) Dose Ordered Sig/Tristan Route Start Time Stop Time Status Last Admin (Narcan Inj) 0.4 mg UNSCH PRN IV 09/29/16 01:45 (NS Flush) 2 ml BID IV FLUSH 09/29/16 09:00 (NS Flush) 2 ml UNSCH PRN IVF 09/29/16 02:00 Family History Brother CABG another Brother on medications for his heart Father at 81 secondary to heart disease Social History ETOH report he has one highball per day Quit smoking 1979 Physical Exam Vital Signs Vital Signs Date Time Temp Pulse Resp B/P Pulse Ox O2 Delivery O2 Flow Rate FiO2 09/29/16 04:47 95 Nasal Cannula 2.00 09/29/16 04:00 63 16 134/74 95 Nasal Cannula 2 09/29/16 03:00 65 16 137/72 95 Nasal Cannula 2 09/29/16 02:29 63 16 134/71 94 Nasal Cannula 2 09/29/16 00:00 95 Nasal Cannula 2 09/28/16 23:50 98.3 72 16 150/72 91 Physical Exam GENERAL: This is a well-nourished, well-developed patient, in no apparent distress at this time SKIN: No rashes, ecchymoses or lesions. Cool and dry. HEAD: Atraumatic. Normocephalic. No temporal or scalp tenderness. EYES: Extraocular motions intact. No scleral icterus. No injection or drainage. CARDIOVASCULAR: Regular rate and rhythm without murmurs, gallops, or rubs. RESPIRATORY: Clear to auscultation. Breath sounds equal bilaterally. No wheezes , rales, or rhonchi. GASTROINTESTINAL: Abdomen soft, non-tender, nondistended. No guarding. MUSCULOSKELETAL: Extremities without clubbing, cyanosis, or edema. No joint tenderness, effusion, or edema noted. No calf tenderness. Negative Homans sign bilaterally. NEUROLOGICAL: Awake and alert. No focal deficits. Motor and sensory grossly within normal limits. Five out of 5 muscle strength in all muscle groups. Normal speech. Laboratory Laboratory Tests Test 09/29/16 00:00 White Blood Count 5.3 Red Blood Count 4.61 Hemoglobin 14.6 Hematocrit 42.8 Mean Corpuscular Volume 92.9 Mean Corpuscular Hemoglobin 31.7 Mean Corpuscular Hemoglobin 34.1 Concent Red Cell Distribution Width 14.1 Platelet Count 191 Mean Platelet Volume 8.1 Neutrophils (%) (Auto) 64.9 Lymphocytes (%) (Auto) 17.3 Monocytes (%) (Auto) 14.5 Eosinophils (%) (Auto) 2.7 Basophils (%) (Auto) 0.6 Neutrophils # (Auto) 3.4 Lymphocytes # (Auto) 0.9 Monocytes # (Auto) 0.8 Eosinophils # (Auto) 0.1 Basophils # (Auto) 0.0 CBC Comment DIFF FINAL Differential Comment Prothrombin Time 10.9 Prothromb Time International 1.0 Ratio Activated Partial 27.9 Thromboplast Time Sodium Level 142 Potassium Level 3.8 Chloride Level 107 Carbon Dioxide Level 27.4 Anion Gap 8 Blood Urea Nitrogen 23 Creatinine 0.89 Estimat Glomerular Filtration 82 Rate Random Glucose 121 Calcium Level 9.2 Total Creatine Kinase 110 Creatine Kinase MB 3.0 Troponin I 0.10 Result Diagram: 09/29/16 0000 09/29/16 0000 Imaging Last Impressions Chest X-Ray 09/28/16 0513 Signed Impressions: Service Date/Time: September 00:21 - CONCLUSION: Cardiomegaly. Clear lungs. David Israel Jr., MD Assessment and Plan Problem List: (1) VT (ventricular tachycardia) ICD Code: I47.2 Status: Acute (2) Chest pain ICD Code: R07.9 Status: Acute (3) AICD discharge ICD Code: Z45.02 Status: Acute (4) Elevated troponin I level ICD Code: R74.8 Status: Acute Assessment and Plan This is a pleasant 81 year old patient with a past medical history which includes Coronary artery disease status post CABG, Ischemic cardiomyopathy with ejection fraction of 30% and is status post AICD, Bladder cancer, Hypertension, Dyslipidemia, Paroxysmal atrial fibrillation. Patient defibrillator fired x 2. EKG on arrival to the ER reviewed and reveals: Sinus rhythm heart rate 72 bpm with first-degree AV block reason lead 3 and aVF Pacemaker interrogation reviewed and reports 7 high ventricular rate episodes, 3 episodes treated with ATP and 2 episodes treated with ATP then shock VT versus Atrial Fibrillation with RVR- with cardiac defibrillator fire x 2 continue home medications pacemaker/defibrillator interrogation reveals: 7 high ventricular rate episodes, 3 episodes treated with ATP and 2 episodes treated with ATP then shock Continue Xarelto, and amiodarone 200 mg by mouth every 12 hours Consult cardiology patient under Dr. Niño Elevated troponin 0.10- likely related to defibrillator shock Trend serial troponin Continue his cardiac telemetry Mild hypokalemia potassium 3.4 in light of DVT Will replace 40 meq potassium by mouth 1 Magnesium level ordered and pending Continue to closely monitor electrolytes Chronic systolic congestive heart failure Continue losartan 25 mg daily, Coreg 12.5 mg every 12 hours, Spironolactone 25 mg by mouth twice a day and Lasix 20 mg daily DVT prophylaxis with Xarelto Discussed with ER provider, nursing and patient Written by Nathalia Patricia, acting as scribe for Dr. Harris on 09/29/16 at 05: 08. This note was transcribed by scribe [Nathalia Patricia]. I, Dr. Kamran Harris personally performed the history, physical exam, and medical decision making; and confirmed the accuracy of the information in the transcribed note. Authenticated by Dr. Kamran Harris on 09/29/16 at 05:08. Problem Qualifiers (1) Chest pain: Qualified Code: R07.2 - Precordial pain Nathalia Patricia September 29, 2016 05:08 Kamran Harris MD Oct 31, 2016 12:19
[2016-09-29] MEDS ORDERED: POTASSIUM CHLORIDE 20 MEQ CONTROLLED RELEASE TAB PO ONE (05:15)
[2016-09-29] MEDS: SPIRONOLACTONE 25 MG TAB PO SCH ×2 (08:38→21:01)
[2016-09-29] MEDS: LOSARTAN 25 MG TAB PO SCH (08:38)
[2016-09-29] MEDS: AMIODARONE 200 MG TAB PO SCH ×2 (08:38→21:02)
[2016-09-29] MEDS: FUROSEMIDE 20 MG TAB PO SCH (08:38)
[2016-09-29] MEDS: ASPIRIN EC 81 MG TABEC PO SCH (08:38)
[2016-09-29] MEDS: RIVAROXABAN 20 MG TAB PO SCH (08:39)
[2016-09-29] MEDS: CARVEDILOL 12.5 MG TAB PO SCH ×2 (08:39→21:01)
[2016-09-29] MEDS: SODIUM CHLORIDE 0.9% FLUSH 10 ML FLUSH IV FLUSH SCH ×2 (08:40→21:02)
[2016-09-29] MEDS ORDERED: SODIUM CHLORIDE 0.9% FLUSH 10 ML FLUSH IV FLUSH SCH (09:00)
--- NOTE | 2016-09-29 10:32 | HHI.PR ---
Addendum to Inpatient Note Addendum Reason: Additional Documentation Additional Information 09/28/16 Patient seen and examined Awaiting for cardiology consult Continue current treatment Reggie Coon MD September 29, 2016 10:32
[2016-09-29 12:39] LABS: MAGNESIUM 2.3 MG/DL (1.5-2.5)
--- NOTE | 2016-09-29 15:06 | MB ---
cc: MIRIAN NIÑO M.D. DATE OF CONSULTATION: 09/29/2016 HISTORY OF PRESENT ILLNESS Thank you Dr. Patricia for asking us to see this very pleasant gentleman who is well-known to me for many years. He has a history of ventricular tachycardia, this has gone on for many years. His ICD was placed because of ventricular tachycardia. He had a history of ASHD with bypass surgery, cardiomyopathy. He was recently seen in the office earlier this month. PAST MEDICAL HISTORY Positive for: 1. ASHD. 2. coronary stent. 3. Angioplasty up . 4. Bypass grafting in 1981. 5. Further angioplasty in 2002. 6. Redo bypass surgery carried out in 2004. 7. Vein graft angioplasty in 2008. 8. History of ventricular fibrillation in 2006. 9. Hypertension. 10.Hyperlipidemia. 11.Carotid disease. FAMILY HISTORY Father is . Mother . Brother well. Brother had bypass surgery. SOCIAL HISTORY Nonsmoker, moderate alcohol. No drugs. Quit smoking in 1979 and also has one drink a day. ALLERGIES CEFUROXIME, LEVAQUIN. REVIEW OF SYSTEMS Admits to having pain prior to shock. No blackouts. Pacemaker interrogation revealed 7 episodes of V-tach pretreated with ATP with a shock. PAST SURGICAL HISTORY Past surgical history is also positive for: 1. Bladder tumor surgery. 2. Cholecystectomy. As above. MEDICATIONS Medications at home include: 1. Coreg. 2. Aspirin. 3. Amiodarone. 4. Cozaar. 5. Aldactone. 6. Xarelto. 7. [place]-3 fatty acids. ALLERGIES Include CEFTIN, CEFIZOX, LEVAQUIN, PENICILLIN. PHYSICAL EXAMINATION VITAL SIGNS: Pulse 63, blood pressure 137/72. HEENT: Eyes show no xanthelasma. Mouth shows no cyanosis or pallor. NECK: No jugular venous distention. HEART: Two heart sounds. No murmurs. CHEST: Clear. ABDOMEN: Soft. No hepatosplenomegaly. EXTREMITIES: Legs reveal no evidence of edema. NEUROLOGIC: Grossly intact. LABORATORY DATA White count 5.3, hemoglobin 14.6, platelet count 191,000. ASSESSMENT/PLAN 1. of V-tach, had AICD discharges times two. Slight rise in troponin secondary to the above. Will review again with the pacemaker it sales representative. Continue on present treatments. Continue with Xarelto with DVT prophylaxis. 2. Congestive heart failure. Since the potassium is elevated this may have been attributing to the ventricular tachycardia but we will also look for other causes, possibly outpatient stress testing, etc. Mirian Niño MD, CP,[facility]/TLL /1:39 PM /3:00 PM [facility]ID
--- NOTE | 2016-09-29 15:39 | EKG ---
Date Performed: 09/28/2016 Time Performed: 23:53:08 PTAGE: 81 years EKG: Sinus rhythm WITH FIRST DEGREE AV BLOCK WITH OCCASIONAL SUPRAVENTRICULAR PREMATURE COMPLEXES PROBABLE INFERIOR MY OCARDIAL INFARCTION ABNORMAL ECG PREVIOUS TRACING : 09/03/2016 04.53 Compared to prior tracing no significant change DOCTOR: Glenn Obregon Interpretating Date/Time 09/29/2016 15:40:08
[2016-09-30] VITALS (13 sets, daily range): BP systolic 99–137; BP diastolic 57–82; PULSE 60–79; RESP 16–18; TEMP 97.4–97.7; O2SAT 93–95
[2016-09-30 05:33] LABS: AUTOMATED NEUTROPHIL # 3.5 TH/MM3 (1.8-7.7); BASOPHIL % 0.6 % (0.0-2.0); EOSINOPHIL # 0.1 TH/MM3 (0-0.4); EOSINOPHIL % 2.2 % (0.0-4.0); HEMATOCRIT 43.7 % (39.0-51.0); HEMO FLAGS DIFF FINAL; LYMPH % 18.8 % (9.0-44.0); MEAN CELL VOLUME 93.9 FL (80.0-100.0); MEAN CORPUSCULAR HEMOGLOBIN 30.6 PG (27.0-34.0); MEAN CORPUSCULAR HGB CONC 32.6 % (32.0-36.0); MONO % 13.3 % (0.0-8.0); NEUT % 65.1 % (16.0-70.0); PLATELET COUNT 177 TH/MM3 (150-450); RED BLOOD COUNT 4.66 MIL/MM3 (4.50-5.90); RED CELL DISTRIBUTION WIDTH 13.9 % (11.6-17.2); WHITE BLOOD COUNT 5.5 TH/MM3 (4.0-11.0)
[2016-09-30 06:02] LABS: BICARBONATE 31.5 MEQ/L (21.0-32.0)
[2016-09-30] MEDS: SPIRONOLACTONE 25 MG TAB PO SCH (09:06)
[2016-09-30] MEDS: ASPIRIN EC 81 MG TABEC PO SCH (09:06)
[2016-09-30] MEDS: FUROSEMIDE 20 MG TAB PO SCH (09:07)
[2016-09-30] MEDS: SODIUM CHLORIDE 0.9% FLUSH 10 ML FLUSH IV FLUSH SCH (09:07)
[2016-09-30] MEDS: AMIODARONE 200 MG TAB PO SCH (09:07)
[2016-09-30] MEDS: CARVEDILOL 12.5 MG TAB PO SCH (09:07)
[2016-09-30] MEDS: RIVAROXABAN 20 MG TAB PO SCH (09:07)
[2016-09-30] MEDS: LOSARTAN 25 MG TAB PO SCH (09:07)
--- NOTE | 2016-09-30 11:12 | HHI.PR ---
Subjective Remarks Follow-up defibrillator firing 09/30/16-patient seen and examined, stable and no more episodes of firing since admission. Denies any chest pain or shortness of breath. Objective Vitals Vital Signs Date Time Temp Pulse Resp B/P Pulse Ox O2 Delivery O2 Flow Rate FiO2 09/30/16 09:18 64 09/30/16 08:00 64 09/30/16 07:30 62 09/30/16 07:00 97.4 62 16 137/82 94 09/30/16 06:00 68 09/30/16 05:00 60 09/30/16 04:00 67 09/30/16 04:00 97.6 71 16 99/57 94 09/30/16 03:00 68 09/30/16 02:00 68 09/30/16 01:00 70 09/30/16 00:00 79 09/30/16 00:00 97.7 63 16 114/64 95 09/29/16 23:00 68 09/29/16 22:00 66 09/29/16 21:00 64 09/29/16 20:00 98.4 76 16 126/73 94 09/29/16 20:00 70 09/29/16 15:00 93.0 61 16 127/68 93 09/29/16 13:18 98 21 09/29/16 11:56 55 09/29/16 11:42 97.0 58 16 138/81 93 I/O 09/29/16 09/29/16 09/29/16 09/30/16 09/30/16 09/30/16 07:00 15:00 23:00 07:00 15:00 23:00 Intake Total 800 ml 240 ml Output Total 900 ml 775 ml Balance -100 ml -535 ml Intake Oral 800 ml 240 ml IV Total 0 ml Output Urine Total 900 ml 775 ml # Bowel Movements 1 Result Diagram: 09/30/16 0510 09/30/16 0510 Imaging Last Impressions Chest X-Ray 09/28/16 0883 Signed Impressions: Service Date/Time: September 00:21 - CONCLUSION: Cardiomegaly. Clear lungs. David Israel Jr., MD Objective Remarks GENERAL: NAD SKIN: Warm and dry. HEAD: Normocephalic. EYES: No scleral icterus. No injection or drainage. NECK: Supple, trachea midline. No JVD or lymphadenopathy. CARDIOVASCULAR: Regular rate and rhythm without murmurs, gallops, or rubs. RESPIRATORY: Breath sounds equal bilaterally. No accessory muscle use. GASTROINTESTINAL: Abdomen soft, non-tender, nondistended. MUSCULOSKELETAL: No cyanosis, or edema. BACK: Nontender without obvious deformity. No CVA tenderness. A/P Problem List: (1) VT (ventricular tachycardia) ICD Code: I47.2 Status: Acute (2) Chest pain ICD Code: R07.9 Status: Acute (3) AICD discharge ICD Code: Z45.02 Status: Acute (4) Elevated troponin I level ICD Code: R74.8 Status: Acute Assessment and Plan 81-year-old man with VT versus Atrial Fibrillation with RVR- with cardiac defibrillator fire x 2 continue home medications pacemaker/defibrillator interrogated Continue Xarelto, and amiodarone 200 mg by mouth every 12 hours Appreciate input from cardiology, Dr. Niño Elevated troponin 0.10- likely related to defibrillator shock Trend serial troponin Continue his cardiac telemetry Mild hypokalemia-resolved status post replacement Chronic systolic congestive heart failure Continue losartan 25 mg daily, Coreg 12.5 mg every 12 hours, Spironolactone 25 mg by mouth twice a day and Lasix 20 mg daily DVT prophylaxis with Xarelto Discharge Planning Likely discharge home today Problem Qualifiers (1) Chest pain: Qualified Code: R07.2 - Precordial pain Reggie Coon MD September 30, 2016 11:12
--- NOTE | 2016-09-30 13:58 | PD.CARD.PN ---
Subjective Subjective Remarks NO more VT Objective Medications Administered Medications Medications (Trade) Dose Ordered Sig/Tristan Route PRN Reason Start Time Stop Time Status Last Admin Dose Admin Sodium Chloride (NS Flush) 2 ml BID IV FLUSH 09/29/16 09:00 09/30/16 09:07 Amiodarone HCl (Cordarone) 200 mg Q12HR PO 09/29/16 09:00 09/30/16 09:07 Aspirin (Ecotrin Ec) 81 mg DAILY PO 09/29/16 09:00 09/30/16 09:06 Losartan Potassium (Cozaar) 25 mg DAILY PO 09/29/16 09:00 09/30/16 09:07 Rivaroxaban (Xarelto) 20 mg DAILY PO 09/29/16 09:00 09/30/16 09:07 Spironolactone (Aldactone) 25 mg BID PO 09/29/16 09:00 09/30/16 09:06 Furosemide (Lasix) 20 mg DAILY PO 09/29/16 09:00 09/30/16 09:07 Vital Signs / I&O Vital Signs Date Time Temp Pulse Resp B/P Pulse Ox O2 Delivery O2 Flow Rate FiO2 09/30/16 11:00 97.7 63 18 127/72 94 09/30/16 09:18 64 09/30/16 08:00 64 09/30/16 07:30 62 09/30/16 07:00 97.4 62 16 137/82 94 09/30/16 06:00 68 09/30/16 05:00 60 09/30/16 04:00 67 09/30/16 04:00 97.6 71 16 99/57 94 09/30/16 03:00 68 09/30/16 02:00 68 09/30/16 01:00 70 09/30/16 00:00 79 09/30/16 00:00 97.7 63 16 114/64 95 09/29/16 23:00 68 09/29/16 22:00 66 09/29/16 21:00 64 09/29/16 20:00 98.4 76 16 126/73 94 09/29/16 20:00 70 09/29/16 15:00 93.0 61 16 127/68 93 I/O 09/29/16 09/29/16 09/29/16 09/30/16 09/30/16/12/17 07:00 15:00 23:00 07:00 15:00 23:00 Intake Total 800 ml 240 ml Output Total 900 ml 775 ml Balance -100 ml -535 ml Intake Oral 800 ml 240 ml IV Total 0 ml Output Urine Total 900 ml 775 ml # Bowel Movements 1 Physical Exam Laboratory Tests Test 09/29/16 09/29/16 09/29/16 09/30/16 00:00 05:10 11:58 05:10 Monocytes (%) (Auto) 14.5 % 13.3 % (0.0-8.0) (0.0-8.0) Lymphocytes # (Auto) 0.9 TH/MM3 (1.0-4.8) Blood Urea Nitrogen 23 MG/DL (7-18) 19 MG/DL (7-18) Estimat Glomerular Filtration 82 ML/MIN (>89) 67 ML/MIN (>89) Rate Random Glucose 121 MG/DL (74-106) Troponin I 0.10 NG/ML 0.25 NG/ML 0.13 NG/ML (0.02-0.05) (0.02-0.05) (0.02-0.05) Laboratory Laboratory Tests Test 09/30/16 05:10 White Blood Count 5.5 TH/MM3 Red Blood Count 4.66 MIL/MM3 Hemoglobin 14.3 GM/DL Hematocrit 43.7 % Mean Corpuscular Volume 93.9 FL Mean Corpuscular Hemoglobin 30.6 PG Mean Corpuscular Hemoglobin 32.6 % Concent Red Cell Distribution Width 13.9 % Platelet Count 177 TH/MM3 Mean Platelet Volume 8.2 FL Neutrophils (%) (Auto) 65.1 % Lymphocytes (%) (Auto) 18.8 % Monocytes (%) (Auto) 13.3 % Eosinophils (%) (Auto) 2.2 % Basophils (%) (Auto) 0.6 % Neutrophils # (Auto) 3.5 TH/MM3 Lymphocytes # (Auto) 1.0 TH/MM3 Monocytes # (Auto) 0.7 TH/MM3 Eosinophils # (Auto) 0.1 TH/MM3 Basophils # (Auto) 0.0 TH/MM3 CBC Comment DIFF FINAL Differential Comment Sodium Level 141 MEQ/L Potassium Level 4.0 MEQ/L Chloride Level 104 MEQ/L Carbon Dioxide Level 31.5 MEQ/L Anion Gap 6 MEQ/L Blood Urea Nitrogen 19 MG/DL Creatinine 1.07 MG/DL Estimat Glomerular Filtration 67 ML/MIN Rate Random Glucose 99 MG/DL Calcium Level 8.8 MG/DL Imaging Last 48 hours Impressions Chest X-Ray 09/28/16 0926 Signed Impressions: Service Date/Time: September 00:21 - CONCLUSION: Cardiomegaly. Clear lungs. David Israel Jr., MD Assessment and Plan Assessment and Plan Overall stable , no more Vt consider increasing betablocker will change to metoprolol FU in 2 weeks Discussed Condition With RN prescription given for betablocker and spironolactone Mirian Niño MD September 30, 2016 13:58
[2016-09-30] MEDS ORDERED: METOPROLOL TARTRATE 25 MG TAB PO SCH (14:00)
== END 2016-09-30 15:07 | disposition home or self-care (01) | DRG 309 ==
LOC: NEPC 23:47 → INTOOBSV 09-29 01:50 → OBSVTOIN 09-29 01:50 → NEDA 09-29 01:50 → HCIS 09-29 04:35
PROVIDERS: ADMIT Hospitalist; ATTEND Hospitalist
DX: I47.2 Ventricular tachycardia (principal); I50.22 Chronic systolic (congestive) heart failure; Z95.1 Presence of aortocoronary bypass graft; I25.5 Ischemic cardiomyopathy; I25.10 Atherosclerotic heart disease of native coronary artery without angina pectoris; R74.8 Abnormal levels of other serum enzymes; Z95.810 Presence of automatic (implantable) cardiac defibrillator; Z85.51 Personal history of malignant neoplasm of bladder; I10 Essential (primary) hypertension; E78.5 Hyperlipidemia, unspecified; E87.6 Hypokalemia; Z95.5 Presence of coronary angioplasty implant and graft; Z87.891 Personal history of nicotine dependence
CPT/HCPCS: 36415; 71010; 80048; 80053; 80061; 82550; 82552; 83735; 84443; 84484; 85025; 85610; 85730; 93005

== ENCOUNTER 2016-10-02 05:35 | Emergency (ER) | payer MEDICARE, OTHER ==
[~2016-10-02] VITALS: Ht 182.9 cm; Wt 92.0 kg
[~2016-10-02 05:35] MED LIST changes: -FISH500C PO; -FURO1TAB62 PO; -KLOR20TA6 PO; +OMEGCAP PO; -PROT40TA PO; -ROSU20 PO; -XARE20TA OR; +XARE20TA PO
[2016-10-02 05:37] VITALS: BP 155/82; PULSE 60; RESP 16; TEMP 97.6; O2SAT 95
[2016-10-02] MEDS ORDERED: METO25TA3 PO (05:44)
[2016-10-02 05:45] VITALS: BP 155/82; O2SAT 96
[2016-10-02] MEDS ORDERED: ASPIRIN 81 MG CHEW TAB PO ONE (05:45)
[2016-10-02] MEDS ORDERED: SODIUM CHLORIDE 0.9% FLUSH 10 ML FLUSH IVF PRN (05:45)
[2016-10-02 06:01] LABS: AUTOMATED NEUTROPHIL # 4.1 TH/MM3 (1.8-7.7); BASOPHIL % 0.6 % (0.0-2.0); EOSINOPHIL # 0.1 TH/MM3 (0-0.4); EOSINOPHIL % 1.6 % (0.0-4.0); HEMATOCRIT 45.9 % (39.0-51.0); HEMO FLAGS DIFF FINAL; LYMPH % 17.2 % (9.0-44.0); MEAN CELL VOLUME 94.5 FL (80.0-100.0); MEAN CORPUSCULAR HEMOGLOBIN 31.1 PG (27.0-34.0); MEAN CORPUSCULAR HGB CONC 32.9 % (32.0-36.0); MONO % 12.3 % (0.0-8.0); NEUT % 68.3 % (16.0-70.0); PLATELET COUNT 187 TH/MM3 (150-450); RED BLOOD COUNT 4.86 MIL/MM3 (4.50-5.90); WHITE BLOOD COUNT 6.1 TH/MM3 (4.0-11.0)
--- NOTE | 2016-10-02 06:08 | PD ---
HPI Chief Complaint: Chest Pain Time Seen by Provider: 05:43 Travel History International Travel<30 days: No Contact w/Intl Traveler<30days: No Traveled to known affect area: No History of Present Illness HPI 81-year-old male with history of CAD status post CABG, ischemic cardiomyopathy with EF approximately 30%, history of A. fib and DVT status post AICD here with complaint of chest pain. Patient was admitted 09/29 after he had 2 episodes of chest pain and his AICD defibrillated 2. He was found to have slow VT and his medications were adjusted change in his carvedilol to metoprolol. Adding spironolactone. Patient has been asymptomatic in the interim until approximately 11 PM last night. He has had now approximately 30 episodes over the last 7 hours of chest pain. He describes this as substernal pressure and tightness that comes on gradually and lasts for approximately 30 seconds and spontaneously abates. Patient has not had any AICD fires, palpitations however states that this feels similar to the 11th when he presented. Patient took aspirin and nitroglycerin at home with resolution of his symptoms and he has been symptom-free now for the last 30 minutes prior to arrival. 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) Cardiac Catheterization: Yes Cardiovascular Problems: Yes High Cholesterol: Yes Coronary Artery Disease: Yes Diabetes: No Diminished Hearing: No Endocrine: No Gastrointestinal Disorders: Yes (GERD) Glaucoma: No Genitourinary: No Hepatitis: No Hiatal Hernia: No Hypertension: Yes Immune Disorder: No Medical other: Yes (arthritis,bladder tumors hx of uti ) Musculoskeletal: No Neurologic: No Psychiatric: No Reproductive: No Respiratory: Yes (hx of pneumonia) Myocardial Infarction: Yes Thyroid Disease: No Past Surgical History Abdominal Surgery: Yes (gallbladder removed) AICD: Yes Body Medical Devices: BLADDER STIMULATOR Cardiac Surgery: Yes (quad by-pass then triple by-pass cardiac stents,AICD) Cholecystectomy: Yes Coronary Artery Bypass Graft: Yes (1980 AND 2002 QUADRUPLE BYPASS) Ear Surgery: No Endocrine Surgery: No Eye Surgery: No Genitourinary Surgery: Yes (bladder tumors removed prostate surgery) Neurologic Surgery: No Oral Surgery: No Pacemaker: Yes Thoracic Surgery: No Other Surgery: Yes (CORONARY ARTERY BYPASS GRAFT IN 1980 AND 2002) Social History Alcohol Use: Yes (DAILY 1 DRINK/DAY) Tobacco Use: Yes (quit; 1979) Substance Use: No Allergies-Medications (Allergen,Severity, Reaction): Coded Allergies: Cefizox (Verified Allergy, Severe, ANAPHYLAXIS, 10/02/16) Ceftin (Unverified Allergy, Severe, anaphylactic, 10/02/16) Levaquin (Verified Allergy, Severe, Anaphylaxis, 10/02/16) Penicillin (Verified Allergy, Mild, 10/02/16) causes anaphylactic Reported Meds & Prescriptions Reported Meds & Active Scripts Active Aspirin EC (Aspirin) 81 Mg Tabdr 81 Mg PO DAILY Amiodarone (Amiodarone HCl) 200 Mg Tab 200 Mg PO Q12HR Cozaar (Losartan Potassium) 25 Mg Tab 25 Mg PO DAILY Aldactone (Spironolactone) 25 Mg Tab 25 Mg PO BID Reported Metoprolol Tartrate 25 Mg Tab 25 Mg PO BID Xarelto (Rivaroxaban) 20 Mg Tab 20 Mg PO DAILY [place]-3 Fish Oil/Vitamin (Fish Oil-Cholecalciferol) 1,000-1,000 Mg Cap 1 Cap PO DAILY Folic Acid 400 Mcg Tab 400 Mcg PO DAILY Review of Systems Except as stated in HPI: all other systems reviewed are Neg Physical Exam Narrative GENERAL: well appearing elderly male, NAD SKIN: Focused skin assessment warm/dry. HEAD: Normocephalic. EYES: No scleral icterus. No injection or drainage. ENT: Mucous membranes pink and moist. NECK: Supple CARDIOVASCULAR: Bradycardic with heart rate in the 50s, regular rhythm. No murmur appreciated. Sternotomy scar and pacer in the left upper chest RESPIRATORY: No accessory muscle use. Clear to auscultation. Breath sounds equal bilaterally. GASTROINTESTINAL: Abdomen soft, non-tender, nondistended. Obese MUSCULOSKELETAL: No obvious deformities. No edema. NEUROLOGICAL: Awake and alert. Normal speech. PSYCHIATRIC: Appropriate mood and affect; insight and judgment normal. Data Data Last Documented VS Vital Signs Date Time Temp Pulse Resp B/P Pulse Ox O2 Delivery O2 Flow Rate FiO2 10/02/16 05:45 155/82 10/02/16 05:45 96 Room Air 10/02/16 05:37 97.6 60 16 Orders Electrocardiogram (10/02/16 05:43) Basic Metabolic Panel (Bmp) (10/02/16 05:43) Ckmb (Isoenzyme) Profile (10/02/16 05:43) Complete Blood Count With Diff (10/02/16 05:43) Magnesium (Mg) (10/02/16 05:43) Prothrombin Time / Inr (Pt) (10/02/16 05:43) Act Partial Throm Time (Ptt) (10/02/16 05:43) Troponin I (10/02/16 05:43) Chest, Single Ap (10/02/16 05:43) Ecg Monitoring (10/02/16 05:43) Bilateral Bp Monitoring (10/02/16 05:43) Iv Access Insert/Monitor (10/02/16 05:43) Oximetry (10/02/16 05:43) Aspirin Chew (Aspirin Chew) (10/02/16 05:45) Sodium Chloride 0.9% Flush (Ns Flush) (10/02/16 05:45) CKMB (10/02/16 05:46) CKMB% (10/02/16 05:46) Labs Laboratory Tests Test 10/02/16 05:46 White Blood Count 6.1 TH/MM3 Red Blood Count 4.86 MIL/MM3 Hemoglobin 15.1 GM/DL Hematocrit 45.9 % Mean Corpuscular Volume 94.5 FL Mean Corpuscular Hemoglobin 31.1 PG Mean Corpuscular Hemoglobin 32.9 % Concent Red Cell Distribution Width 14.0 % Platelet Count 187 TH/MM3 Mean Platelet Volume 8.1 FL Neutrophils (%) (Auto) 68.3 % Lymphocytes (%) (Auto) 17.2 % Monocytes (%) (Auto) 12.3 % Eosinophils (%) (Auto) 1.6 % Basophils (%) (Auto) 0.6 % Neutrophils # (Auto) 4.1 TH/MM3 Lymphocytes # (Auto) 1.0 TH/MM3 Monocytes # (Auto) 0.7 TH/MM3 Eosinophils # (Auto) 0.1 TH/MM3 Basophils # (Auto) 0.0 TH/MM3 CBC Comment DIFF FINAL Differential Comment Prothrombin Time 12.0 SEC Prothromb Time International 1.1 RATIO Ratio Activated Partial 32.0 SEC Thromboplast Time Sodium Level 141 MEQ/L Potassium Level 4.2 MEQ/L Chloride Level 107 MEQ/L Carbon Dioxide Level 26.8 MEQ/L Anion Gap 7 MEQ/L Blood Urea Nitrogen 23 MG/DL Creatinine 0.91 MG/DL Estimat Glomerular Filtration 80 ML/MIN Rate Random Glucose 111 MG/DL Calcium Level 8.9 MG/DL Magnesium Level 2.3 MG/DL Total Creatine Kinase 107 U/L Troponin I LESS THAN 0.02 NG/ML MDM Medical Decision Making Medical Screen Exam Complete: Yes Emergency Medical Condition: Yes Medical Record Reviewed: Yes Differential Diagnosis 81-year-old male with history of CAD status post CABG, ischemic cardiomyopathy with EF approximately 30%, history of A. fib and DVT status post AICD here with complaint of chest pain, approximately 30 episodes of 30 seconds of chest tightness over the course the last 7 hours. Differential includes ACS, atypical chest pain, arrhythmia, slow VT, electrolyte abnormality. Narrative Course Patient placed on monitor, IV established and blood obtained. Twelve-lead EKG shows sinus bradycardia with first-degree AV block. No notable ST abnormalities. Patient had taken aspirin prior to arrival and is symptom-free at this time. Portable chest x-ray obtained that by my read shows no acute abnormalities. CBC, BMP, magnesium, CK-MB, troponin, coags obtained and unremarkable. [employer] was dispatched to interrogate the patient's pacemaker. Patient signed out to oncoming provider waiting results of interrogation and consultation with patient's surgical scrub technician, Dr. Niño. Diagnosis Primary Impression: Chest pain Rosana Carrillo MD October 02, 2016 06:08
[2016-10-02 06:17] LABS: INTERNATIONAL NORMALIZED RATIO 1.1 RATIO
[2016-10-02 06:36] LABS: CREATINE KINASE 107 U/L (39-308)
[2016-10-02 06:37] LABS: ANION GAP 7 MEQ/L (5-15); BICARBONATE 26.8 MEQ/L (21.0-32.0); BLOOD UREA NITROGEN 23 MG/DL (7-18); CHLORIDE 107 MEQ/L (98-107); GLOMERULAR FILTRATION RATE 80 ML/MIN (>89); MAGNESIUM 2.3 MG/DL (1.5-2.5); POTASSIUM 4.2 MEQ/L (3.5-5.1); SODIUM (NA) 141 MEQ/L (136-145)
--- NOTE | 2016-10-02 06:42 | RADRPT ---
EXAM DATE/TIME: 10/02/2016 05:46 [facility] COMPARISON: CHEST SINGLE AP, September 29, 2016, 0:21. INDICATIONS : Chest pain. MEDICAL HISTORY : Cardiovascular disease. SURGICAL HISTORY : CABG. Pacemaker. ENCOUNTER: Initial ACUITY: 1 day PAIN SCORE: 4/10 LOCATION: Bilateral chest FINDINGS: A single view of the chest demonstrates the lungs to be symmetrically aerated without evidence of mas s, infiltrate or effusion. The cardiomediastinal contours are unremarkable. There is evidence of pre vious cardiothoracic surgery. There is a pacemaker overlying the left chest. Osseous structures are intact. CONCLUSION: No acute disease. No significant change has occurred. Reid Cooper MD on October 02, 2016 at 6:41 Board Certified Radiologist. This report was verified electronically.
[2016-10-02 06:50] LABS: CKMB 2.2 NG/ML (0.5-3.6)
--- NOTE | 2016-10-02 07:39 | PD ---
Physical Exam Date Seen by Provider: October 02, 2016 Time Seen by Provider: 07:36 Narrative 81-year-old male came to the emergency room earlier with history of feeling weird sensation that was vaguely described as warm sensation lasting for a few seconds and 30 some Episodes of such over the night. He was seen by the previous ER physician. Please refer to her H&P for further details. Blood work was done which was within normal limit. Patient has an AICD and the sign out to me was to follow-up on [employer] interrogation. The [employer] lead generation representative just left after interrogating the device and said there were no activities. The device function was normal since the last episode check which was on 09/29/2016. I discussed just now the case with Dr. Neumann who was covering for Dr. Niño. After the whole presentation was described to him he thought it was okay for the patient to be discharged home. Patient will call office tomorrow to make an appointment. Data Data Last Documented VS Vital Signs Date Time Temp Pulse Resp B/P Pulse Ox O2 Delivery O2 Flow Rate FiO2 10/02/16 05:45 155/82 10/02/16 05:45 96 Room Air 10/02/16 05:37 97.6 60 16 Orders Electrocardiogram (10/02/16 05:43) Basic Metabolic Panel (Bmp) (10/02/16 05:43) Ckmb (Isoenzyme) Profile (10/02/16 05:43) Complete Blood Count With Diff (10/02/16 05:43) Magnesium (Mg) (10/02/16 05:43) Prothrombin Time / Inr (Pt) (10/02/16 05:43) Act Partial Throm Time (Ptt) (10/02/16 05:43) Troponin I (10/02/16 05:43) Chest, Single Ap (10/02/16 05:43) Ecg Monitoring (10/02/16 05:43) Bilateral Bp Monitoring (10/02/16 05:43) Iv Access Insert/Monitor (10/02/16 05:43) Oximetry (10/02/16 05:43) Aspirin Chew (Aspirin Chew) (10/02/16 05:45) Sodium Chloride 0.9% Flush (Ns Flush) (10/02/16 05:45) CKMB (10/02/16 05:46) CKMB% (10/02/16 05:46) Labs Laboratory Tests Test 10/02/16 05:46 White Blood Count 6.1 TH/MM3 Red Blood Count 4.86 MIL/MM3 Hemoglobin 15.1 GM/DL Hematocrit 45.9 % Mean Corpuscular Volume 94.5 FL Mean Corpuscular Hemoglobin 31.1 PG Mean Corpuscular Hemoglobin 32.9 % Concent Red Cell Distribution Width 14.0 % Platelet Count 187 TH/MM3 Mean Platelet Volume 8.1 FL Neutrophils (%) (Auto) 68.3 % Lymphocytes (%) (Auto) 17.2 % Monocytes (%) (Auto) 12.3 % Eosinophils (%) (Auto) 1.6 % Basophils (%) (Auto) 0.6 % Neutrophils # (Auto) 4.1 TH/MM3 Lymphocytes # (Auto) 1.0 TH/MM3 Monocytes # (Auto) 0.7 TH/MM3 Eosinophils # (Auto) 0.1 TH/MM3 Basophils # (Auto) 0.0 TH/MM3 CBC Comment DIFF FINAL Differential Comment Prothrombin Time 12.0 SEC Prothromb Time International 1.1 RATIO Ratio Activated Partial 32.0 SEC Thromboplast Time Sodium Level 141 MEQ/L Potassium Level 4.2 MEQ/L Chloride Level 107 MEQ/L Carbon Dioxide Level 26.8 MEQ/L Anion Gap 7 MEQ/L Blood Urea Nitrogen 23 MG/DL Creatinine 0.91 MG/DL Estimat Glomerular Filtration 80 ML/MIN Rate Random Glucose 111 MG/DL Calcium Level 8.9 MG/DL Magnesium Level 2.3 MG/DL Total Creatine Kinase 107 U/L Creatine Kinase MB 2.2 NG/ML Troponin I LESS THAN 0.02 NG/ML [facility] Supervised Visit with CHITO: No Diagnosis Primary Impression: Chest pain Referrals: Primary Care Physician Additional Instruction: Please call your manager multimedia's office in the morning to make an appointment for a stress test and further assessment. Please return to the ER if the condition worsens or any other new concerns. Disposition: 01 DISCHARGE HOME Condition: Stable Brian Fortune MD October 02, 2016 07:39
--- NOTE | 2016-10-02 15:15 | EKG ---
Date Performed: 10/02/2016 Time Performed: 05:42:32 PTAGE: 81 years EKG: SINUS BRADYCARDIA WITH FIRST DEGREE AV BLOCK INFERIOR MYOCARDIAL INFARCTION Since previous tracing, no significant change noted ABNORMAL ECG PREVIOUS TRACING : 09/28/2016 23.53 DOCTOR: Esther Yepez Interpretating Date/Time 10/02/2016 15:14:32
== END 2016-10-02 08:43 | disposition home or self-care (01) ==
LOC: NEPE 05:35
DX: R07.89 Other chest pain (principal); I25.10 Atherosclerotic heart disease of native coronary artery without angina pectoris; I25.5 Ischemic cardiomyopathy; I10 Essential (primary) hypertension; R00.1 Bradycardia, unspecified; I48.91 Unspecified atrial fibrillation; Z79.01 Long term (current) use of anticoagulants; Z95.5 Presence of coronary angioplasty implant and graft; Z95.810 Presence of automatic (implantable) cardiac defibrillator; Z95.1 Presence of aortocoronary bypass graft; Z95.0 Presence of cardiac pacemaker; Z79.82 Long term (current) use of aspirin
CPT/HCPCS: 71010; 80048; 82550; 82552; 83735; 84484; 85025; 85610; 85730; 93005

== ENCOUNTER → 2017-03-22 | Outpatient (CLI) | payer MEDICARE, OTHER ==
[~2017-03-22] MED LIST changes: -CARV12.5 PO; +METO25TA3 PO
[2017-03-22 13:52] LABS: AUTOMATED NEUTROPHIL # 3.1 TH/MM3 (1.8-7.7); BASOPHIL % 0.3 % (0.0-2.0); EOSINOPHIL # 0.1 TH/MM3 (0-0.4); EOSINOPHIL % 2.2 % (0.0-4.0); HEMATOCRIT 43.2 % (39.0-51.0); HEMOGLOBIN 14.5 GM/DL (13.0-17.0); LYMPH % 19.1 % (9.0-44.0); LYMPHOCYTE # 0.9 TH/MM3 (1.0-4.8); MEAN CELL VOLUME 96.3 FL (80.0-100.0); MEAN CORPUSCULAR HEMOGLOBIN 32.3 PG (27.0-34.0); MEAN CORPUSCULAR HGB CONC 33.5 % (32.0-36.0); MEAN PLATELET VOLUME 8.5 FL (7.0-11.0); MONOCYTE # 0.6 TH/MM3 (0-0.9); NEUT % 65.4 % (16.0-70.0); PLATELET COUNT 162 TH/MM3 (150-450); RED BLOOD COUNT 4.49 MIL/MM3 (4.50-5.90); RED CELL DISTRIBUTION WIDTH 13.6 % (11.6-17.2); WHITE BLOOD COUNT 4.7 TH/MM3 (4.0-11.0)
[2017-03-22 13:58] LABS: ALBUMIN 3.6 GM/DL (3.4-5.0); AST (GOT) 24 U/L (15-37); BICARBONATE 30.4 MEQ/L (21.0-32.0); BLOOD UREA NITROGEN 20 MG/DL (7-18); CALCIUM 9.1 MG/DL (8.5-10.1); CHLORIDE 106 MEQ/L (98-107); CREATININE 0.83 MG/DL (0.60-1.30); GLOMERULAR FILTRATION RATE 89 ML/MIN (>89); GLUCOSE,FASTING 98 MG/DL (74-99); SODIUM (NA) 143 MEQ/L (136-145)
[2017-03-22 14:11] LABS: ALKALINE PHOSPHATASE 78 U/L (45-117); ALT (GPT) 38 U/L (12-78); CHOLESTEROL 105 MG/DL (120-200); CHOLESTEROL/ HDL RATIO 2.23 RATIO; HDL CHOLESTEROL 46.9 MG/DL (40.0-60.0); LDL CHOLESTEROL 34 MG/DL (0-99); LDL CHOLESTEROL DIRECT 55 MG/DL (0-99); TOTAL BILIRUBIN ADULT 0.6 MG/DL (0.2-1.0); TOTAL PROTEIN 6.7 GM/DL (6.4-8.2); TRIGLYCERIDES 121 MG/DL (42-150)
== END ==
LOC: PLAB 09:20
PROVIDERS: ATTEND Family Medicine
DX: E34.9 Endocrine disorder, unspecified (principal); I10 Essential (primary) hypertension; E78.5 Hyperlipidemia, unspecified; N13.2 Hydronephrosis with renal and ureteral calculous obstruction; Z12.5 Encounter for screening for malignant neoplasm of prostate; Z51.81 Encounter for therapeutic drug level monitoring
CPT/HCPCS: 36415; 80053; 80061; 83721; 84153; 84443; 85025

== ENCOUNTER → 2017-04-12 | Outpatient (CLI) | payer MEDICARE, OTHER ==
[~2017-04-12] MED LIST changes: -ASPI81TA11 PO; +ASPI81TA23 PO
[2017-04-15 03:50] LABS: THYROGLOB ABS LESS THAN 1 IU/mL (< OR = 1)
== END ==
LOC: PLAB 11:30
PROVIDERS: ATTEND Family Medicine
DX: E05.90 Thyrotoxicosis, unspecified without thyrotoxic crisis or storm (principal)
CPT/HCPCS: 36415; 84443; 84445; 86376; 86800

== ENCOUNTER 2017-05-01 12:13 | Inpatient (IN) | payer MEDICARE, OTHER ==
[2017-05-01] VITALS (10 sets, daily range): BP systolic 102–142; BP diastolic 60–67; PULSE 58–80; RESP 16–18; TEMP 97.5–97.6; O2SAT 93–95
[2017-05-01] MEDS ORDERED: ACETAMINOPHEN 325 MG TAB PO PRN ×2 (14:30→14:45)
[2017-05-01] MEDS ORDERED: NALOXONE HCL 0.4 MG/ML AMP IV PUSH PRN (14:30)
[2017-05-01] MEDS ORDERED: ALUMINUM/MAGNESIUM/SIMETH 30 ML CUP PO PRN (14:45)
[2017-05-01] MEDS ORDERED: MAGNESIUM HYDROXIDE SUSP 30 ML CUP PO PRN (14:45)
[2017-05-01] MEDS ORDERED: TEMAZEPAM 15 MG CAP PO PRN (14:45)
[2017-05-01] MEDS ORDERED: ACETAMINOPHEN/CODEINE 300 MG/30 MG TAB PO PRN (14:45)
--- NOTE | 2017-05-01 15:17 | PD.CONS ---
HPI Service Cardiology Consult Requested By Dr Del Cid Reason for Consult VT/Sotalol loading Primary Care Physician Socrates Gill MD History of Present Illness The patient is an 82 year old male known to our practice with a cardiac history of ischemic cardiomyopathy s/p ICD, ASHD, atrial fibrillation, ventricular tachycardia, chronic systolic CHF, mild to moderate MR and HTN. The patient underwent VT and AF ablation with Dr Mitchell at [facility] 04/17/2017. The hospital admission was complicated by bacteremia that has since resolved. After he arrived home, a few days later he developed exertional chest pain and was admitted to [facility]. On device interrogation, symptoms correlated with slow VT that was not captured by ICD due to rate settings. While in the hospital, amiodarone was decreased to every other day and ICD settings were adjusted to try to capture and treat VT sooner. Since discharge, he has received multiple appropriate ATP and shocks for sustained VT. Amiodarone was increased, but he continued to have sustained VT. Today, the patient was evaluated in the office, and after discussion with the patient and Dr Mitchell, we elected to direct admit the patient for Sotalol loading. (Negin Zapata) Review of Systems Consitutional: COMPLAINS OF: Fatigue, DENIES: Fever, Chills, Weight gain, Weight loss Eyes: DENIES: Amaurosis Fugax, Change in vision HEENT: COMPLAINS OF: Lightheadedness, DENIES: Change in hearing Respiratory: DENIES: See HPI, Cough, Snoring, Shortness of breath, Wheezing, Sputum production Cardiovascular: COMPLAINS OF: Chest pain, Palpitations, DENIES: See HPI, Syncope, Tachycardia Gastrointestinal: DENIES: Nausea, Vomiting, Change in bowel habits, Reflux, Bloody stools, Melena Genitourinary: DENIES: Urinary incontinence, Difficulty voiding Integumentary: DENIES: Rash Neurologic: DENIES: Tingling or numbness, Memory problems, Poor Balance, Stroke symptoms Musculoskeletal: DENIES: Joint pain, Muscle pain, Limited range of motion, Back pain Psychiatric: DENIES: Anxiety, Depression, Sleep disturbances Hematologic: DENIES: Bruising tendencies, Bleeding tendencies Endocrine: DENIES: Weight gain, Weight loss, Thyroid disease (Negin Zapata ) Past Family Social History Allergies: Coded Allergies: ceftizoxime (Unverified Allergy, Severe, ANAPHYLAXIS, 01/03/17) cefuroxime (Unverified Allergy, Severe, anaphylactic, 01/03/17) levofloxacin (Unverified Allergy, Severe, Anaphylaxis, 01/03/17) penicillin G (Unverified Allergy, Mild, 01/03/17) causes anaphylactic Past Medical History See HPI Past Surgical History VT and AF ablation 04/17/2017 [employer] generator change out 01/2012 Ventricular fibrillation 10/2006 [employer] placement 01/2003 Angioplasty/stent 2002 CABG 1981 Reported Medications Reported Meds & Active Scripts Active Aspirin EC (Aspirin) 81 Mg Tabdr 81 Mg PO DAILY Amiodarone (Amiodarone HCl) 200 Mg Tab 200 Mg PO Q12HR Cozaar (Losartan Potassium) 25 Mg Tab 25 Mg PO DAILY Aldactone (Spironolactone) 25 Mg Tab 25 Mg PO BID Reported Metoprolol Tartrate 25 Mg Tab 25 Mg PO BID Xarelto (Rivaroxaban) 20 Mg Tab 20 Mg PO DAILY [place]-3 Fish Oil/Vitamin (Fish Oil-Cholecalciferol) 1,000-1,000 Mg Cap 1 Cap PO DAILY Folic Acid 400 Mcg Tab 400 Mcg PO DAILY Active Ordered Medications Current Medications Medications (Trade) Dose Ordered Sig/Tristan Route Start Time Stop Time Status Last Admin (Tylenol) 650 mg Q4H PRN PO 05/01/17 14:30 (Narcan Inj) 0.4 mg UNSCH PRN IV PUSH 05/01/17 14:30 (Ecotrin Ec) 81 mg DAILY PO 05/02/17 09:00 (Folate) 1 mg DAILY PO 05/02/17 09:00 (Cozaar) 25 mg DAILY PO 05/02/17 09:00 (Xarelto) 20 mg DAILY PO 05/02/17 09:00 (Aldactone) 25 mg BID PO 05/01/17 21:00 (Restoril) 15 mg HS PRN PO 05/01/17 14:45 (Milk Of Magnesia Liq) 30 ml Q2H PRN PO 05/01/17 14:45 (Mag-Al Plus Susp Liq) 30 ml Q2H PRN PO 05/01/17 14:45 (Tylenol-Codeine #3) 2 tab Q4H PRN PO 05/01/17 14:45 (Tylenol) 650 mg Q4H PRN PO 05/01/17 14:45 (Betapace) 80 mg BID PO 05/01/17 15:00 Family History non contributory Social History , occasional ETOH, non smoking (Negin Zapata) Physical Exam Vital Signs HR 76 bpm, BP 144/70, HT 70 in, WT 200 lbs Physical Exam GENERAL: Elderly male in cpcu rm 453 SKIN: Warm and dry. HEAD: Atraumatic. Normocephalic. EYES: Pupils equal and round. No scleral icterus. No injection or drainage. ENT: No nasal bleeding or discharge. Mucous membranes pink and moist. NECK: Trachea midline. CARDIOVASCULAR: Regular rate and rhythm. Systolic murmur RESPIRATORY: No accessory muscle use. GASTROINTESTINAL: Abdomen soft, non-tender, nondistended. MUSCULOSKELETAL: Extremities without clubbing, cyanosis, or edema. No obvious deformities. NEUROLOGICAL: Awake and alert. No obvious cranial nerve deficits. Motor grossly within normal limits. Five out of 5 muscle strength in the arms and legs. Normal speech. PSYCHIATRIC: Appropriate mood and affect; insight and judgment normal. Laboratory Pending (Negin Zapata) Assessment and Plan Assessment and Plan Recurrent sustained ventricular tachycardia s/p VT ablation 04/17/2017 on amiodarone Atrial fibrillation s/p AF ablation 04/17/2017 on Xarelto ASHD negative cardiac PET 09/2016 Cardiomyopathy EF 35-40% Chronic systolic CHF HTN HLD GERD PLAN Sotalol loading, first dose now Daily EKG and continuous tele monitoring Check electrolytes and optimize Continue home meds The patient was seen and evaluated by Dr Niño who completed face to face encounter, physical exam and participated in evaluation and management. (Negin Zapata) Assessment and Plan The exam, history, and the medical decision-making described in the above note were completed with the assistance of the mid-level provider. I reviewed and agree with the findings presented. I attest that I had a [id number] encounter with the patient on the same day, and personally performed and documented my assessment and findings in the medical record. Will see if sotalol works better to suppress VT , if not reablation of VT (Mirian Niño MD) Negin Zapata May 01, 2017 15:17 Mirian Niño MD May 02, 2017 15:03
[2017-05-01 15:38] LABS: BLOOD, URINE NEG (NEG); COMMENT (UR) CULT NOT INDICATED; CULTURE IF INDICATED CULT NOT INDICATED; GLUCOSE,URINE NEG (NEG); KETONE, URINE NEG (NEG); MUCUS URINE FEW /lpf (OCC); NITRITE,URINE NEG (NEG); SQUAMOUS EPITHELIAL CELL URINE <1 /hpf (0-5); URINE COLOR YELLOW (YELLW/STRAW)
--- NOTE | 2017-05-01 15:42 | RADRPT ---
EXAM DATE/TIME: 05/01/2017 15:05 [facility] COMPARISON: CHEST SINGLE AP, October 02, 2016, 5:46. INDICATIONS : Short of breath. MEDICAL HISTORY : Cardiovascular disease. SURGICAL HISTORY : CABG. defibrillator ENCOUNTER: Initial ACUITY: 1 day PAIN SCORE: 0/10 LOCATION: Bilateral chest FINDINGS: A single view of the chest demonstrates the lungs to be symmetrically aerated without evidence of mas s, infiltrate or effusion. Status post median sternotomy and CABG. Left-sided defibrillator with a s benigno intact lead. Left basilar scarring. The cardiomediastinal contours are unremarkable. Osseous s tructures are intact. CONCLUSION: No acute disease. Reggie Main MD on May 01, 2017 at 15:41 Board Certified Radiologist. This report was verified electronically.
[2017-05-01 16:17] LABS: MAGNESIUM 2.1 MG/DL (1.5-2.5)
--- NOTE | 2017-05-01 16:45 | HHI.HP ---
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 I received a call from Dr. Niño requesting direct admit of the patient due to need to switch from amiodarone or sotalol and monitoring under telemetry due to failure of amiodarone and ICD firing. Currently patient doing well no chest pain or short of breath patient has told me he had CABG in 1979 and 2002, he reported feeling dizzy around episode of the ICD firing otherwise no complain no losing of consciousness. Review of Systems All systems reviewed and was positive for what is mentioned in history of present illness otherwise negative Past Family Social History Past Medical History As in history of present illness Past Surgical History VT and AF ablation 04/17/2017 Medtronic generator change out 01/2012 Ventricular fibrillation 10/2006 Medtronic placement 01/2003 Angioplasty/stent 2002 CABG 1981 Allergies: Coded Allergies: ceftizoxime (Unverified Allergy, Severe, ANAPHYLAXIS, 01/03/17) cefuroxime (Unverified Allergy, Severe, anaphylactic, 01/03/17) levofloxacin (Unverified Allergy, Severe, Anaphylaxis, 01/03/17) penicillin G (Unverified Allergy, Mild, 01/03/17) causes anaphylactic Family History Coronary artery disease Social History Drinks alcohol occasionally no tobacco or illicit drug use Physical Exam Vital Signs Vital Signs Date Time Temp Pulse Resp B/P (MAP) Pulse Ox O2 Delivery O2 Flow Rate FiO2 05/01/17 16:07 73 05/01/17 15:34 97.6 80 18 142/67 (92) 95 05/01/17 15:34 69 Physical Exam GENERAL: This is a well-nourished, well-developed patient, in no apparent distress. SKIN: No rashes, warm and dry , midline chest scar from previous CABG HEAD: Atraumatic. Normocephalic. EYES: Pupils equal round and reactive. Extraocular motions intact. No scleral icterus. ENT: Nose without bleeding, or drainage, Airway patent. NECK: Trachea midline. Supple CARDIOVASCULAR: Regular rate and rhythm without murmurs, gallops, or rubs. RESPIRATORY: Fair air entry bilaterally. No wheezes, rales, or rhonchi. GASTROINTESTINAL: Abdomen soft, non-tender, nondistended. Positive bowel sounds MUSCULOSKELETAL: Extremities without clubbing, cyanosis, or edema. Pedal pulses appreciated NEUROLOGICAL: Awake and alert. Moves all extremity. Normal speech.no focal neurological deficit Laboratory Laboratory Tests Test 05/01/17 14:55 05/01/17 15:11 Urine Color YELLOW Urine Turbidity CLEAR Urine pH 6.0 Urine Specific [place] 1.013 Urine Protein NEG Urine Glucose (UA) NEG Urine Ketones NEG Urine Occult Blood NEG Urine Nitrite NEG Urine Bilirubin NEG Urine Urobilinogen LESS THAN 2.0 Urine Leukocyte Esterase NEG Urine RBC LESS THAN 1 Urine WBC 1 Urine Squamous Epithelial Cells <1 Urine Mucus FEW Microscopic Urinalysis Comment CULT NOT INDICATED Magnesium Level 2.1 Imaging Last Impressions Chest X-Ray 05/01/17 3757 Signed Impressions: Service Date/Time: Monday, May 01, 2017 15:05 - CONCLUSION: No acute disease. MD Kal Murrayi VTE Risk Assessment Caprini VTE Risk Assessment: Mod/High Risk (score >= 2) Caprini Risk Assessment Model Point Value = 1 Point Value = 2 Point Value = 3 Point Value = 5 Age 41-60 Minor surgery BMI > 25 kg/m2 Swollen legs Varicose veins or History of unexplained or recurrent spontaneous Oral contraceptives or hormone replacement Sepsis (< 1 month) Serious lung disease, including pneumonia (< 1 month) Abnormal pulmonary function Acute myocardial infarction Congestive heart failure (< 1 month) History of inflammatory bowel disease Medical patient at bed rest Age 61-74 Arthroscopic surgery Major open surgery (> 45 min) Laparoscopic surgery (> 45 min) Malignancy Confined to bed (> 72 hours) Immobilizing plaster cast Central venous access Age >= 75 History of VTE Family history of VTE Factor V Leiden Prothrombin [id number] Lupus anticoagulant Anticardiolipin antibodies Elevated serum homocysteine Heparin-induced thrombocytopenia Other congenital or acquired thrombophilia Stroke (< 1 month) Elective arthroplasty Hip, pelvis, or leg fracture Acute spinal cord injury (< 1 month) Prophylaxis Regimen Total Risk Factor Score Risk Level Prophylaxis Regimen 0-1 Low Early ambulation 2 Moderate Order ONE of the following: *Sequential Compression Device (SCD) *Heparin 5000 units SQ BID 3-4 Higher Order ONE of the following medications: *Heparin 5000 units SQ TID *Enoxaparin/Lovenox 40 mg SQ daily (WT < 150 kg, CrCl > 30 mL/min) *Enoxaparin/Lovenox 30 mg SQ daily (WT < 150 kg, CrCl > 10-29 mL/min) *Enoxaparin/Lovenox 30 mg SQ BID (WT < 150 kg, CrCl > 30 mL/min) AND/OR *Sequential Compression Device (SCD) 5 or more Highest Order ONE of the following medications: *Heparin 5000 units SQ TID (Preferred with Epidurals) *Enoxaparin/Lovenox 40 mg SQ daily (WT < 150 kg, CrCl > 30 mL/min) *Enoxaparin/Lovenox 30 mg SQ daily (WT < 150 kg, CrCl > 10-29 mL/min) *Enoxaparin/Lovenox 30 mg SQ BID (WT < 150 kg, CrCl > 30 mL/min) AND *Sequential Compression Device (SCD) Assessment and Plan Assessment and Plan 82 years old male with history of A. fib, V. tach came directly from cardiology office for sotalol loading: H/O A. fib/V. tach S/P ICD firing and failed amiodarone Recurrent sustained ventricular tachycardia s/p VT ablation 04/17/2017 on amiodarone Atrial fibrillation s/p AF ablation 04/17/2017 on Xarelto ASHD negative cardiac PET 09/2016 Cardiomyopathy EF 35-40% Chronic systolic CHF HTN HLD GERD DVT prophylaxis Plan: Admit directly for telemetry monitoring while loading sotalol Consult cardiology Dr. Niño, discussed with him earlier Hold aspirin, hold metoprolol Close monitoring for electrolyte and BMP Continue rest of the home medication DVT prophylaxis patient on Xarelto Discussed Condition With Patient and Dr. Niño Physician Certification 2 Midnight Certification Type: Admission for Inpatient Services Order for Inpatient Services The services are ordered in accordance with Medicare regulations or non- Medicare payer requirements, as applicable. In the case of services not specified as inpatient-only, they are appropriately provided as inpatient services in accordance with the 2-midnight benchmark. Estimated LOS (days): 2 days is the estimated time the patient will need to remain in the hospital, assuming treatment plan goals are met and no additional complications. Post-Hospital Plan: Not yet determined Madeline Del Cid MD May 01, 2017 16:45
[2017-05-01] MEDS: SOTALOL HCL 80 MG TAB PO SCH ×2 (16:52→21:00)
[2017-05-01 17:58] LABS: AUTOMATED NEUTROPHIL # 5.3 TH/MM3 (1.8-7.7); BASOPHIL # 0.1 TH/MM3 (0-0.2); BASOPHIL % 0.7 % (0.0-2.0); EOSINOPHIL # 0.1 TH/MM3 (0-0.4); EOSINOPHIL % 1.1 % (0.0-4.0); HEMATOCRIT 33.8 % (39.0-51.0); HEMO FLAGS DIFF FINAL; LYMPH % 11.4 % (9.0-44.0); LYMPHOCYTE # 0.8 TH/MM3 (1.0-4.8); MEAN CELL VOLUME 96.8 FL (80.0-100.0); MEAN CORPUSCULAR HEMOGLOBIN 33.1 PG (27.0-34.0); MEAN CORPUSCULAR HGB CONC 34.2 % (32.0-36.0); MONO % 9.8 % (0.0-8.0); PLATELET COUNT 399 TH/MM3 (150-450); RED BLOOD COUNT 3.49 MIL/MM3 (4.50-5.90); RED CELL DISTRIBUTION WIDTH 14.5 % (11.6-17.2); WHITE BLOOD COUNT 6.9 TH/MM3 (4.0-11.0)
[2017-05-01 18:04] LABS: ALT (GPT) 38 U/L (12-78); TOTAL BILIRUBIN ADULT 1.1 MG/DL (0.2-1.0)
[2017-05-01 18:05] LABS: ALKALINE PHOSPHATASE 91 U/L (45-117)
[2017-05-01 18:06] LABS: INTERNATIONAL NORMALIZED RATIO 1.1 RATIO; PROTHROMBIN TIME - PATIENT 11.4 SEC (9.8-11.6)
[2017-05-01 18:09] LABS: AST (GOT) 36 U/L (15-37); BLOOD UREA NITROGEN 21 MG/DL (7-18); CHLORIDE 105 MEQ/L (98-107); GLOMERULAR FILTRATION RATE 81 ML/MIN (>89); SODIUM (NA) 140 MEQ/L (136-145)
[2017-05-01 18:10] LABS: ANION GAP 5 MEQ/L (5-15); BICARBONATE 29.8 MEQ/L (21.0-32.0)
[2017-05-01 18:13] LABS: POTASSIUM 4.1 MEQ/L (3.5-5.1)
[2017-05-01] MEDS: SPIRONOLACTONE 25 MG TAB PO SCH (21:00)
[2017-05-01] MEDS ORDERED: ALPRAZolam 0.5 MG TAB PO ONE (23:15)
[2017-05-02] VITALS (24 sets, daily range): BP systolic 104–134; BP diastolic 60–70; PULSE 59–73; RESP 16–18; TEMP 97.3–98.1; O2SAT 94–96
[2017-05-02 06:01] LABS: AUTOMATED NEUTROPHIL # 4.7 TH/MM3 (1.8-7.7); BASOPHIL % 0.5 % (0.0-2.0); EOSINOPHIL # 0.1 TH/MM3 (0-0.4); EOSINOPHIL % 1.7 % (0.0-4.0); HEMATOCRIT 32.7 % (39.0-51.0); HEMO FLAGS DIFF FINAL; LYMPH % 12.9 % (9.0-44.0); LYMPHOCYTE # 0.8 TH/MM3 (1.0-4.8); MEAN CORPUSCULAR HEMOGLOBIN 32.3 PG (27.0-34.0); MEAN CORPUSCULAR HGB CONC 33.7 % (32.0-36.0); MONO % 13.1 % (0.0-8.0); NEUT % 71.8 % (16.0-70.0); PLATELET COUNT 374 TH/MM3 (150-450); RED BLOOD COUNT 3.41 MIL/MM3 (4.50-5.90); RED CELL DISTRIBUTION WIDTH 14.6 % (11.6-17.2); WHITE BLOOD COUNT 6.6 TH/MM3 (4.0-11.0)
[2017-05-02 06:17] LABS: POTASSIUM 3.8 MEQ/L (3.5-5.1)
[2017-05-02] MEDS: RIVAROXABAN 20 MG TAB PO SCH (09:33)
[2017-05-02] MEDS: LOSARTAN 25 MG TAB PO SCH (09:34)
[2017-05-02] MEDS: FOLIC ACID 1 MG TAB PO SCH (09:39)
[2017-05-02] MEDS: SPIRONOLACTONE 25 MG TAB PO SCH ×2 (09:39→21:19)
[2017-05-02] MEDS: SOTALOL HCL 80 MG TAB PO SCH ×2 (09:39→21:19)
[2017-05-02] MEDS: ASPIRIN EC 81 MG TABEC PO SCH (09:39)
--- NOTE | 2017-05-02 10:19 | PD.CARD.PN ---
Subjective Subjective Remarks The patient had an episode of dizziness yesterday while seating. Episode did not correlate with arrhythmia on telemetry. He denies recurrent events since. Sotalol started yesterday. Pending EKG and Sotalol dose this morning. (Negin Zapata) Objective Medications Current Medications Medications (Trade) Dose Ordered Sig/Tristan Route Start Time Stop Time Status Last Admin (Tylenol) 650 mg Q4H PRN PO 05/01/17 14:30 (Narcan Inj) 0.4 mg UNSCH PRN IV PUSH 05/01/17 14:30 (Ecotrin Ec) 81 mg DAILY PO 05/02/17 09:00 05/02/17 09:39 (Folate) 1 mg DAILY PO 05/02/17 09:00 05/02/17 09:39 (Cozaar) 25 mg DAILY PO 05/02/17 09:00 05/02/17 09:34 (Xarelto) 20 mg DAILY PO 05/02/17 09:00 05/02/17 09:33 (Aldactone) 25 mg BID PO 05/01/17 21:00 05/02/17 09:39 (Restoril) 15 mg HS PRN PO 05/01/17 14:45 (Milk Of Magnesia Liq) 30 ml Q2H PRN PO 05/01/17 14:45 (Mag-Al Plus Susp Liq) 30 ml Q2H PRN PO 05/01/17 14:45 (Tylenol-Codeine #3) 2 tab Q4H PRN PO 05/01/17 14:45 (Tylenol) 650 mg Q4H PRN PO 05/01/17 14:45 (Betapace) 80 mg BID PO 05/01/17 15:00 05/02/17 09:39 Vital Signs / I&O Vital Signs Date Time Temp Pulse Resp B/P (MAP) Pulse Ox O2 Delivery O2 Flow Rate FiO2 05/02/17 04:00 98.1 71 16 113/70 (84) 94 05/02/17 04:00 60 05/02/17 03:00 64 05/02/17 02:00 60 05/02/17 01:00 64 05/02/17 00:00 64 05/02/17 00:00 97.5 64 18 134/64 (87) 95 05/01/17 23:00 62 05/01/17 22:00 62 05/01/17 21:00 58 05/01/17 20:00 58 05/01/17 20:00 97.5 60 16 102/60 (74) 93 05/01/17 19:00 68 05/01/17 18:21 95 05/01/17 18:00 72 05/01/17 17:03 74 05/01/17 16:07 73 05/01/17 15:34 97.6 80 18 142/67 (92) 95 05/01/17 15:34 69 I/O 05/01/17 05/01/17 05/01/17 05/02/17 05/02/17 05/02/17 07:00 15:00 23:00 07:00 15:00 23:00 Intake Total 120 ml 240 ml Output Total 250 ml 450 ml Balance -130 ml -210 ml Intake Oral 120 ml 240 ml Output Urine Total 250 ml 450 ml # Bowel Movements 0 0 Physical Exam GENERAL: Elderly male sitting up in chair SKIN: Warm and dry. HEAD: Normocephalic. EYES: No scleral icterus. No injection or drainage. NECK: Supple, trachea midline. CARDIOVASCULAR: RRR, systolic murmur, left chest ICD RESPIRATORY: Breath sounds equal bilaterally. No accessory muscle use. Bilateral rales (chronic) GASTROINTESTINAL: Abdomen soft, non-tender, nondistended. MUSCULOSKELETAL: No cyanosis,trace pretibial edema BACK: Nontender without obvious deformity. . Laboratory Laboratory Tests Test 05/01/17 14:55 05/01/17 15:11 05/02/17 04:57 Urine Color YELLOW Urine Turbidity CLEAR Urine pH 6.0 Urine Specific [place] 1.013 Urine Protein NEG mg/dL Urine Glucose (UA) NEG mg/dL Urine Ketones NEG mg/dL Urine Occult Blood NEG Urine Nitrite NEG Urine Bilirubin NEG Urine Urobilinogen LESS THAN 2.0 MG/DL Urine Leukocyte Esterase NEG Urine RBC LESS THAN 1 /hpf Urine WBC 1 /hpf Urine Squamous Epithelial Cells <1 /hpf Urine Mucus FEW /lpf Microscopic Urinalysis Comment CULT NOT INDICATED White Blood Count 6.9 TH/MM3 6.6 TH/MM3 Red Blood Count 3.49 MIL/MM3 3.41 MIL/MM3 Hemoglobin 11.6 GM/DL 11.0 GM/DL Hematocrit 33.8 % 32.7 % Mean Corpuscular Volume 96.8 FL 96.0 FL Mean Corpuscular Hemoglobin 33.1 PG 32.3 PG Mean Corpuscular Hemoglobin Concent 34.2 % 33.7 % Red Cell Distribution Width 14.5 % 14.6 % Platelet Count 399 TH/MM3 374 TH/MM3 Mean Platelet Volume 7.9 FL 7.5 FL Neutrophils (%) (Auto) 77.0 % 71.8 % Lymphocytes (%) (Auto) 11.4 % 12.9 % Monocytes (%) (Auto) 9.8 % 13.1 % Eosinophils (%) (Auto) 1.1 % 1.7 % Basophils (%) (Auto) 0.7 % 0.5 % Neutrophils # (Auto) 5.3 TH/MM3 4.7 TH/MM3 Lymphocytes # (Auto) 0.8 TH/MM3 0.8 TH/MM3 Monocytes # (Auto) 0.7 TH/MM3 0.9 TH/MM3 Eosinophils # (Auto) 0.1 TH/MM3 0.1 TH/MM3 Basophils # (Auto) 0.1 TH/MM3 0.0 TH/MM3 CBC Comment DIFF FINAL DIFF FINAL Differential Comment Prothrombin Time 11.4 SEC Prothromb Time International Ratio 1.1 RATIO Activated Partial Thromboplast Time 30.0 SEC Blood Urea Nitrogen 21 MG/DL 20 MG/DL Creatinine 0.90 MG/DL 0.92 MG/DL Random Glucose 80 MG/DL 91 MG/DL Total Protein 7.2 GM/DL Albumin 3.3 GM/DL Calcium Level 9.2 MG/DL 9.0 MG/DL Magnesium Level 2.1 MG/DL Alkaline Phosphatase 91 U/L Aspartate Amino Transf (AST/SGOT) 36 U/L Alanine Aminotransferase (ALT/SGPT) 38 U/L Total Bilirubin 1.1 MG/DL Sodium Level 140 MEQ/L 140 MEQ/L Potassium Level 4.1 MEQ/L 3.8 MEQ/L Chloride Level 105 MEQ/L 104 MEQ/L Carbon Dioxide Level 29.8 MEQ/L 29.0 MEQ/L Anion Gap 5 MEQ/L 7 MEQ/L Estimat Glomerular Filtration Rate 81 ML/MIN 79 ML/MIN Imaging Last 24 hours Impressions Chest X-Ray 05/01/17 8807 Signed Impressions: Service Date/Time: Monday, May 01, 2017 15:05 - CONCLUSION: No acute disease. Reggie Main MD (Negin Zapata) Assessment and Plan Assessment and Plan Recurrent sustained ventricular tachycardia s/p VT ablation 04/17/2017 on amiodarone prior to admission. Atrial fibrillation s/p AF ablation 04/17/2017 on Xarelto ASHD negative cardiac PET 09/2016 Cardiomyopathy EF 35-40% Chronic systolic CHF HTN HLD GERD Bibasilar rales PLAN EKG this morning, monitor QTc, hold next Sotalol dose for QTc > 500 We will continue to monitor the patient carefully. Plan to discharge tomorrow pending clinical course The patient was seen and evaluated by Dr Niño who completed face to face encounter, physical exam and participated in evaluation and management. (Negin Zapata) Assessment and Plan The exam, history, and the medical decision-making described in the above note were completed with the assistance of the mid-level provider. I reviewed and agree with the findings presented. I attest that I had a [id number] encounter with the patient on the same day, and personally performed and documented my assessment and findings in the medical record. On Sotalol no more Vtach (Mirian Niño MD) Negin Zapata May 02, 2017 10:19 Mirian Niño MD May 02, 2017 15:04
--- NOTE | 2017-05-02 12:45 | EKG ---
Date Performed: 05/01/2017 Time Performed: 15:01:42 PTAGE: 82 years EKG: Normal Sinus rhythm . First degree AV block. Old inferior infarct. Nonspecific T wave flattening Abnormal ECG Since PREVIOUS TRACING , no significant change noted PREVIOUS TRACIN10/02/2016 05.42 DOCTOR: Nathan Menendez Interpretating Date/Time 05/02/2017 12:43:50
--- NOTE | 2017-05-02 18:15 | EKG ---
Date Performed: 05/02/2017 Time Performed: 05:36:30 PTAGE: 82 years EKG: Sinus rhythm with 1st degree A-V block Prolonged QT interval Inferior infarct - age undetermined Since previous t racing, no significant change noted Abnormal ECG PREVIOUS TRACING : 05/01/2017 15.01 DOCTOR: Nathan Menendez Interpretating Date/Time 05/02/2017 18:13:03
--- NOTE | 2017-05-02 22:30 | HHI.PR ---
Subjective Remarks pt seen around 2pm. says feeling well. no cp orsob. Objective Vital Signs Date Time Temp Pulse Resp B/P (MAP) Pulse Ox O2 Delivery O2 Flow Rate FiO2 05/02/17 17:00 68 05/02/17 16:00 61 05/02/17 15:30 63 05/02/17 15:30 97.7 63 18 115/60 (78) 96 05/02/17 14:00 66 05/02/17 13:00 66 05/02/17 12:00 70 05/02/17 11:29 97.8 64 16 117/65 (82) 95 05/02/17 11:29 69 05/02/17 11:00 68 05/02/17 10:00 72 05/02/17 09:35 95 21 05/02/17 09:00 70 05/02/17 08:00 60 05/02/17 08:00 60 05/02/17 07:00 97.8 64 16 117/65 (82) 95 05/02/17 07:00 73 05/02/17 04:00 98.1 71 16 113/70 (84) 94 05/02/17 04:00 60 05/02/17 03:00 64 05/02/17 02:00 60 05/02/17 01:00 64 05/02/17 00:00 64 05/02/17 00:00 97.5 64 18 134/64 (87) 95 05/01/17 23:00 62 I/O 05/01/17 05/01/17 05/01/17 05/02/17 05/02/17 05/02/17 07:00 15:00 23:00 07:00 15:00 23:00 Intake Total 120 ml 240 ml 960 ml Output Total 250 ml 450 ml 1025 ml Balance -130 ml -210 ml -65 ml Intake Oral 120 ml 240 ml 960 ml IV Total 0 ml Output Urine Total 250 ml 450 ml 1025 ml # Bowel Movements 0 0 3 Result Diagram: 05/02/1745605/02/17456 Objective Remarks GENERAL: patient sitting up in bed. Appears comfortable. SKIN: Warm and dry. HEAD: Normocephalic. EYES: No scleral icterus. No injection or drainage. NECK: Supple, trachea midline. No JVD. CARDIOVASCULAR: Regular rate and rhythm without murmurs, gallops, or rubs. RESPIRATORY: Breath sounds equal bilaterally. No accessory muscle use. GASTROINTESTINAL: Abdomen soft, non-tender, nondistended. MUSCULOSKELETAL: No cyanosis, or edema. BACK: Nontender without obvious deformity. No CVA tenderness. A/P Assessment and Plan 82 years old male with history of A. fib, V. tach came directly from cardiology office for sotalol loading: //H/O A. fib/V. tach S/P ICD firing and failed amiodarone //Recurrent sustained ventricular tachycardia s/p VT ablation 04/17/2017 on amiodarone //Atrial fibrillation s/p AF ablation 04/17/2017 on Xarelto //ASHD negative cardiac PET 09/2016 //Cardiomyopathy EF 35-40% //Chronic systolic CHF //HTN //HLD -medications as per cardiology Dr. Niño Cardiology directly admitted the patient for sotalol loading on telemetry. -Discharge when cleared by cardiology. Possibly tomorrow. //DVT prophylaxis patient on Xarelto Discharge Planning possible dc home tomrorow when cleared by cards Rome Malik MD May 02, 2017 22:30
[2017-05-03] VITALS (17 sets, daily range): BP systolic 103–122; BP diastolic 57–63; PULSE 54–80; RESP 16–18; TEMP 97.4–98.1; O2SAT 95–96
[2017-05-03 07:13] LABS: BICARBONATE 30.4 MEQ/L (21.0-32.0); POTASSIUM 3.8 MEQ/L (3.5-5.1)
[2017-05-03] MEDS: RIVAROXABAN 20 MG TAB PO SCH (08:19)
[2017-05-03] MEDS: LOSARTAN 25 MG TAB PO SCH (08:19)
[2017-05-03] MEDS: SOTALOL HCL 80 MG TAB PO SCH (08:19)
[2017-05-03] MEDS: SPIRONOLACTONE 25 MG TAB PO SCH (08:19)
[2017-05-03] MEDS: FOLIC ACID 1 MG TAB PO SCH (08:19)
[2017-05-03] MEDS: ASPIRIN EC 81 MG TABEC PO SCH (08:19)
--- NOTE | 2017-05-03 09:52 | HHI.PR ---
Subjective Remarks Patient reports he is feeling well. No chest pain or shortness of breath. Objective Vitals Vital Signs Date Time Temp Pulse Resp B/P (MAP) Pulse Ox O2 Delivery O2 Flow Rate FiO2 05/03/17 09:00 61 05/03/17 08:00 54 05/03/17 07:31 80 05/03/17 07:31 98.0 61 18 122/63 (82) 96 05/03/17 06:00 78 05/03/17 05:00 62 05/03/17 04:00 59 05/03/17 03:00 97.4 63 16 113/58 (76) 96 05/03/17 03:00 59 05/03/17 02:00 63 05/03/17 01:00 59 05/03/17 00:00 57 05/02/17 23:30 97.3 59 16 105/61 (76) 96 05/02/17 23:00 60 05/02/17 22:00 68 05/02/17 21:00 62 05/02/17 20:00 97.9 62 16 104/61 (75) 96 05/02/17 20:00 62 05/02/17 19:00 59 05/02/17 17:00 68 05/02/17 16:00 61 05/02/17 15:30 63 05/02/17 15:30 97.7 63 18 115/60 (78) 96 05/02/17 14:00 66 05/02/17 13:00 66 05/02/17 12:00 70 05/02/17 11:29 97.8 64 16 117/65 (82) 95 05/02/17 11:29 69 05/02/17 11:00 68 05/02/17 10:00 72 I/O 05/02/17 05/02/17 05/02/17 05/03/17 05/03/17 05/03/17 07:00 15:00 23:00 07:00 15:00 23:00 Intake Total 240 ml 960 ml 480 ml Output Total 450 ml 1025 ml 1050 ml Balance -210 ml -65 ml -570 ml Intake Oral 240 ml 960 ml 480 ml IV Total 0 ml Output Urine Total 450 ml 1025 ml 1050 ml # Bowel Movements 0 3 0 Result Diagram: 05/02/17 0457 05/03/17 0557 Objective Remarks GENERAL: This is a well-nourished, well-developed patient, in no apparent distress. CARDIOVASCULAR: Normal rate and regular rhythm without murmurs, gallops, or rubs. RESPIRATORY: Good respiratory efforts. Breath sounds equal and clear to auscultation bilaterally. GASTROINTESTINAL: Abdomen soft, non-tender, non-distended. Normal active bowel sounds MUSCULOSKELETAL: Extremities without cyanosis, or edema. NEURO: Alert & Oriented x4 to person, place, time, situation. Moves all ext x4 PSYCH: Appropriate mood and affect. A/P Assessment and Plan 82-year-old male with history of A. fib and V. tach admitted for sotalol loading per cardiology. Patient failed amiodarone. - Patient had some short runs of V. tach. - Continue to monitor on telemetry per cardiology. - Continue sotalol and Xarelto. Cardiomyopathy EF 35-40% Chronic systolic CHF HTN HLD -medications as per cardiology Dr. Niño -Discharge when cleared by cardiology. Possibly tomorrow. DVT prophylaxis patient on Xarelto Discharge Planning possible dc home tomorrow when cleared by cards Naresh Rangel MD May 03, 2017 09:52
--- NOTE | 2017-05-03 10:03 | PD.CARD.PN ---
Subjective Subjective Remarks The patient denies symptoms of lightheadedness, palpitations, SOB, CP or edema. He had a run of NSVT 4 beats. Objective Medications Current Medications Medications (Trade) Dose Ordered Sig/Tristan Route Start Time Stop Time Status Last Admin (Tylenol) 650 mg Q4H PRN PO 05/01/17 14:30 (Narcan Inj) 0.4 mg UNSCH PRN IV PUSH 05/01/17 14:30 (Ecotrin Ec) 81 mg DAILY PO 05/02/17 09:00 05/03/17 08:19 (Folate) 1 mg DAILY PO 05/02/17 09:00 05/03/17 08:19 (Cozaar) 25 mg DAILY PO 05/02/17 09:00 05/03/17 08:19 (Xarelto) 20 mg DAILY PO 05/02/17 09:00 05/03/17 08:19 (Aldactone) 25 mg BID PO 05/01/17 21:00 05/03/17 08:19 (Restoril) 15 mg HS PRN PO 05/01/17 14:45 05/02/17 23:28 (Milk Of Magnesia Liq) 30 ml Q2H PRN PO 05/01/17 14:45 (Mag-Al Plus Susp Liq) 30 ml Q2H PRN PO 05/01/17 14:45 (Tylenol-Codeine #3) 2 tab Q4H PRN PO 05/01/17 14:45 (Tylenol) 650 mg Q4H PRN PO 05/01/17 14:45 (Betapace) 80 mg BID PO 05/01/17 15:00 05/03/17 08:19 Vital Signs / I&O Vital Signs Date Time Temp Pulse Resp B/P (MAP) Pulse Ox O2 Delivery O2 Flow Rate FiO2 05/03/17 09:00 61 05/03/17 08:00 54 05/03/17 07:31 80 05/03/17 07:31 98.0 61 18 122/63 (82) 96 05/03/17 06:00 78 05/03/17 05:00 62 05/03/17 04:00 59 05/03/17 03:00 97.4 63 16 113/58 (76) 96 05/03/17 03:00 59 05/03/17 02:00 63 05/03/17 01:00 59 05/03/17 00:00 57 05/02/17 23:30 97.3 59 16 105/61 (76) 96 05/02/17 23:00 60 05/02/17 22:00 68 05/02/17 21:00 62 05/02/17 20:00 97.9 62 16 104/61 (75) 96 05/02/17 20:00 62 05/02/17 19:00 59 05/02/17 17:00 68 05/02/17 16:00 61 05/02/17 15:30 63 05/02/17 15:30 97.7 63 18 115/60 (78) 96 05/02/17 14:00 66 05/02/17 13:00 66 05/02/17 12:00 70 05/02/17 11:29 97.8 64 16 117/65 (82) 95 05/02/17 11:29 69 05/02/17 11:00 68 05/02/17 10:00 72 I/O 05/02/17 05/02/17 05/02/17 05/03/17 05/03/17 05/03/17 07:00 15:00 23:00 07:00 15:00 23:00 Intake Total 240 ml 960 ml 480 ml Output Total 450 ml 1025 ml 1050 ml Balance -210 ml -65 ml -570 ml Intake Oral 240 ml 960 ml 480 ml IV Total 0 ml Output Urine Total 450 ml 1025 ml 1050 ml # Bowel Movements 0 3 0 Physical Exam GENERAL: Elderly male sitting up in chair SKIN: Warm and dry. HEAD: Normocephalic. EYES: No scleral icterus. No injection or drainage. NECK: Supple, trachea midline. CARDIOVASCULAR: RRR, systolic murmur, left chest ICD RESPIRATORY: Breath sounds equal bilaterally. No accessory muscle use. Bilateral rales (chronic) GASTROINTESTINAL: Abdomen soft, non-tender, nondistended. MUSCULOSKELETAL: No cyanosis,no edema BACK: Nontender without obvious deformity. . Laboratory Laboratory Tests Test 05/03/17 05:57 Blood Urea Nitrogen 21 MG/DL Creatinine 0.98 MG/DL Random Glucose 90 MG/DL Albumin 2.9 GM/DL Calcium Level 8.7 MG/DL Phosphorus Level 3.5 MG/DL Magnesium Level 2.0 MG/DL Sodium Level 142 MEQ/L Potassium Level 3.8 MEQ/L Chloride Level 106 MEQ/L Carbon Dioxide Level 30.4 MEQ/L Anion Gap 6 MEQ/L Estimat Glomerular Filtration Rate 74 ML/MIN Imaging Last 72 hours Impressions Chest X-Ray 05/01/17 1407 Signed Impressions: Service Date/Time: Monday, May 01, 2017 15:05 - CONCLUSION: No acute disease. Reggie Main MD Assessment and Plan Assessment and Plan Recurrent ICD treated sustained ventricular tachycardia after VT ablation 2016 on amiodarone prior to admission. Now on Sotalol. Followed by Dr Mitchell for EP. Case discussed with him. Atrial fibrillation s/p AF ablation 04/17/2017 on Xarelto ASHD negative cardiac PET 09/2016 Cardiomyopathy EF 35-40% Chronic systolic CHF HTN HLD GERD Bibasilar rales PLAN Continue Sotalol loading and EKG/telemetry monitoring. Ambulate in the hallway Consideration for discharge tonight after dinner pending clinical course. Will send sotalol Rx from office to his [facility] pharmacy The patient was seen and evaluated by Dr Niño who completed face to face encounter, physical exam and participated in evaluation and management. Negin Zapata May 03, 2017 10:03
[2017-05-03] MEDS ORDERED: SOTA80 PO (14:48)
--- NOTE | 2017-05-03 14:52 | HHI.DCPOC ---
Discharge Care Plan Diagnosis: (1) VT (ventricular tachycardia) (2) Atrial fibrillation Goals to Promote Your Health * To prevent worsening of your condition and complications * To maintain your health at the optimal level Directions to Meet Your Goals Take your medications as prescribed Follow your dietary instruction Follow activity as directed Keep your appointments as scheduled Take your immunizations and boosters as scheduled If your symptoms worsen call your PCP, if no PCP go to Urgent Care Center or Emergency Room Smoking is Dangerous to Your Health. Avoid second hand smoke Call the 24-hour hour crisis hotline for domestic abuse at Naresh Rangel MD May 03, 2017 14:52
--- NOTE | 2017-05-03 14:54 | HHI.DS ---
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 I received a call from Dr. Niño requesting direct admit of the patient due to need to switch from amiodarone or sotalol and monitoring under telemetry due to failure of amiodarone and ICD firing. Currently patient doing well no chest pain or short of breath patient has told me he had CABG in 1979 and 2002, he reported feeling dizzy around episode of the ICD firing otherwise no complain no losing of consciousness. CBC/BMP: 05/02/17 0457 05/03/17 0557 Significant Findings Laboratory Tests Test 05/01/17 14:55 05/01/17 15:11 05/02/17 04:57 05/03/17 05:57 Urine Mucus FEW /lpf (OCC) Red Blood Count 3.49 MIL/MM3 (4.50-5.90) 3.41 MIL/MM3 (4.50-5.90) Hemoglobin 11.6 GM/DL (13.0-17.0) 11.0 GM/DL (13.0-17.0) Hematocrit 33.8 % (39.0-51.0) 32.7 % (39.0-51.0) Neutrophils (%) (Auto) 77.0 % (16.0-70.0) 71.8 % (16.0-70.0) Monocytes (%) (Auto) 9.8 % (0.0-8.0) 13.1 % (0.0-8.0) Lymphocytes # (Auto) 0.8 TH/MM3 (1.0-4.8) 0.8 TH/MM3 (1.0-4.8) Blood Urea Nitrogen 21 MG/DL (7-18) 20 MG/DL (7-18) 21 MG/DL (7-18) Albumin 3.3 GM/DL (3.4-5.0) 2.9 GM/DL (3.4-5.0) Total Bilirubin 1.1 MG/DL (0.2-1.0) Estimat Glomerular Filtration Rate 81 ML/MIN (>89) 79 ML/MIN (>89) 74 ML/MIN (>89) PE at Discharge GENERAL: This is a well-nourished, well-developed patient, in no apparent distress. CARDIOVASCULAR: Normal rate and regular rhythm without murmurs, gallops, or rubs. RESPIRATORY: Good respiratory efforts. Breath sounds equal and clear to auscultation bilaterally. GASTROINTESTINAL: Abdomen soft, non-tender, non-distended. Normal active bowel sounds MUSCULOSKELETAL: Extremities without cyanosis, or edema. NEURO: Alert & Oriented x4 to person, place, time, situation. Moves all ext x4 PSYCH: Appropriate mood and affect. Pt update on day of discharge Patient reports is feeling great. He denies shortness of breath or chest pain. Hospital Course 82-year-old male with history of A. fib and V. tach admitted for sotalol loading per cardiology. Patient failed amiodarone. Patient was started on sotalol per cardiology and tolerated the medication. He was continued on Xarelto. The patient is discharged on the same regimen. [employer] will send the medication to his pharmacy. He is discharge in good condition to follow-up outpatient. Pt Condition on Discharge: Good Discharge Disposition: Discharge Home Discharge Time: <= 30 minutes Discharge Instructions DIET: Follow Instructions for: Heart Healthy Diet Activities you can perform: Regular-No Restrictions New Medications: Sotalol (Sorine) 80 Mg Tab 80 MG PO BID, #1 TAB Continued Medications: Aspirin DR (Aspirin EC) 81 Mg Tabdr 81 MG PO DAILY for heart, #30 TAB Fish Oil-Cholecalciferol ([place]-3 Fish Oil/Vitamin) 1,000-1,000 Mg Cap 1 CAP PO DAILY for Nutritional Supplement, CAP 0 Refills Folic Acid (Folic Acid) 400 Mcg Tab 400 MCG PO DAILY for Nutritional Supplement, TAB 0 Refills Losartan (Cozaar) 25 Mg Tab 25 MG PO DAILY for HTN, #30 TAB Rivaroxaban (Xarelto) 20 Mg Tab 20 MG PO DAILY for Blood Clot Prevention, TAB 0 Refills Spironolactone (Aldactone) 25 Mg Tab 25 MG PO BID for diuretic, #30 TAB 0 Refills Discontinued Medications: Amiodarone (Amiodarone) 200 Mg Tab 200 MG PO Q12HR for VT, #60 TAB Metoprolol Tartrate (Metoprolol Tartrate) 25 Mg Tab 25 MG PO BID, #60 TAB 0 Refills Naresh Rangel MD May 03, 2017 14:54
--- NOTE | 2017-05-03 15:03 | EKG ---
Date Performed: 05/03/2017 Time Performed: 06:28:48 PTAGE: 82 years EKG: Sinus bradycardia with 1st degree A-V block Inferior infarct - age undetermined Abnormal EC G PREVIOUS TRACING : 05/02/2017 20.40 DOCTOR: Audie Johnson Interpretating Date/Time 05/03/2017 15:02:53
--- NOTE | 2017-05-03 15:35 | EKG ---
Date Performed: 05/02/2017 Time Performed: 20:40:46 PTAGE: 82 years EKG: Sinus rhythm with 1st degree A-V block Inferior infarct - age undetermined QRS changes V3/V4 may be due to LVH bu t cannot rule out anterior infarct Low QRS voltages in precordial leads Abnormal ECG PREVIOUS TRACING : 05/02/2017 09.23 DOCTOR: Audie Johnson Interpretating Date/Time 05/03/2017 15:34:16
--- NOTE | 2017-05-03 16:05 | EKG ---
Date Performed: 05/02/2017 Time Performed: 09:23:22 PTAGE: 82 years EKG: Sinus rhythm with 1st degree A-V block Inferior infarct - age undetermined Abnormal ECG PREVIOUS TRACING : 05/02/2017 05.36 DOCTOR: Audie Johnson Interpretating Date/Time 05/03/2017 16:03:54
== END 2017-05-03 17:30 | disposition home or self-care (01) | DRG 309 ==
LOC: HCPC 12:58
PROVIDERS: ADMIT Family Medicine; ATTEND Family Medicine
DX: I47.2 Ventricular tachycardia (principal); I50.22 Chronic systolic (congestive) heart failure; I11.0 Hypertensive heart disease with heart failure; I48.91 Unspecified atrial fibrillation; I25.10 Atherosclerotic heart disease of native coronary artery without angina pectoris; I25.5 Ischemic cardiomyopathy; E78.5 Hyperlipidemia, unspecified; K21.9 Gastro-esophageal reflux disease without esophagitis; Z95.810 Presence of automatic (implantable) cardiac defibrillator; Z95.5 Presence of coronary angioplasty implant and graft; Z79.01 Long term (current) use of anticoagulants; Z95.1 Presence of aortocoronary bypass graft
CPT/HCPCS: 71010; 80048; 80053; 80069; 81001; 82948; 83735; 85025; 85610; 85730; 93005

== ENCOUNTER → 2017-09-11 | Outpatient (CLI) | payer MEDICARE, OTHER ==
[~2017-09-11] MED LIST changes: -AMIO200T PO; -METO25TA3 PO; +SOTA80 PO
[2017-09-11 13:53] LABS: ALBUMIN 3.7 GM/DL (3.4-5.0); AST (GOT) 18 U/L (15-37); BICARBONATE 30.4 MEQ/L (21.0-32.0); BLOOD UREA NITROGEN 20 MG/DL (7-18); CALCIUM 9.3 MG/DL (8.5-10.1); CHLORIDE 105 MEQ/L (98-107); CHOLESTEROL 119 MG/DL (120-200); CREATININE 1.03 MG/DL (0.60-1.30); GLOMERULAR FILTRATION RATE 69 ML/MIN (>89); GLUCOSE,FASTING 90 MG/DL (74-99); SODIUM (NA) 142 MEQ/L (136-145); TRIGLYCERIDES 193 MG/DL (42-150)
[2017-09-11 13:56] LABS: ALKALINE PHOSPHATASE 73 U/L (45-117); ALT (GPT) 25 U/L (12-78); AUTOMATED NEUTROPHIL # 4.7 TH/MM3 (1.8-7.7); BASOPHIL % 0.4 % (0.0-2.0); CHOLESTEROL/ HDL RATIO 3.25 RATIO; EOSINOPHIL # 0.1 TH/MM3 (0-0.4); EOSINOPHIL % 1.8 % (0.0-4.0); HDL CHOLESTEROL 36.6 MG/DL (40.0-60.0); HEMATOCRIT 44.9 % (39.0-51.0); HEMOGLOBIN 14.8 GM/DL (13.0-17.0); LDL CHOLESTEROL 44 MG/DL (0-99); LDL CHOLESTEROL DIRECT 62 MG/DL (0-99); LYMPH % 17.1 % (9.0-44.0); LYMPHOCYTE # 1.2 TH/MM3 (1.0-4.8); MEAN CELL VOLUME 93.4 FL (80.0-100.0); MEAN CORPUSCULAR HEMOGLOBIN 30.7 PG (27.0-34.0); MEAN CORPUSCULAR HGB CONC 32.9 % (32.0-36.0); MEAN PLATELET VOLUME 9.1 FL (7.0-11.0); MONO % 10.3 % (0.0-8.0); MONOCYTE # 0.7 TH/MM3 (0-0.9); NEUT % 70.4 % (16.0-70.0); PLATELET COUNT 214 TH/MM3 (150-450); RED BLOOD COUNT 4.81 MIL/MM3 (4.50-5.90); TOTAL PROTEIN 7.2 GM/DL (6.4-8.2); WHITE BLOOD COUNT 6.7 TH/MM3 (4.0-11.0)
== END ==
LOC: PLAB 09:33
PROVIDERS: ATTEND Family Medicine
DX: I10 Essential (primary) hypertension (principal); E78.5 Hyperlipidemia, unspecified; Z12.5 Encounter for screening for malignant neoplasm of prostate
CPT/HCPCS: 36415; 80053; 80061; 83721; 84153; 85025